=== PATIENT | female | born 1995 | race Caucasian/White ===

== ENCOUNTER 2017-06-06 15:36 | Emergency (ER) | payer MEDICAID ==
[2017-06-06 16:04] LABS: Bilirubin NEGATIVE (NEGATIVE); Blood 50 Ery/ul (0-5); COMPLETE URINE MICROSCOPIC? YES; Collection Type VOID; Glucose NEGATIVE (NEGATIVE); Leukocyte Esterase 1+ (NEGATIVE)
[2017-06-06 16:05] LABS: ADD URINE CULTURE? YES (NO)
[2017-06-06 16:10] LABS: Bacteria PACKED /HPF (NEGATIVE); Epithelial Cells FEW /HPF (FEW)
[2017-06-06] MEDS ORDERED: Sodium Chloride 0.9% 1000 ML 1,000 ML IV STA (16:15)
[2017-06-06] MEDS ORDERED: MORPHINE SULFATE 4 MG INJ IV ONE (16:15)
--- NOTE | 2017-06-06 16:19 | ERPHSYRPT ---
- History of Present Illness Time Seen by Provider: 06/06/17 16:11 Historian: patient Exam Limitations: no limitations Patient Subjective Stated Complaint: pt co abd pain today,no nausea or vomiting , back pain forr and on, pt is and has not had prental care yet. no vaginal bleeding Triage Nursing Assessment: pt walked in, alert,resp easy. skin w/d pink, abd soft, tender to touch,no edema Physician History: 21-year-old white female states that she is she thinks maybe 4-6 weeks. She arrives with complaint of chronic back pain low lumbar region. She also states that she is having suprapubic abdominal pain for several hours. Patient has not been vomiting. Patient states she had a home test multiple times she has not presented to her family doctor. Past medical history includes Gilbert's syndrome, mall removed from her chest. Past surgical history includes . Timing/Duration: other (chronic low back pain suprapubic pain for one hour) Activities at Onset: none Quality: cramping Abdominal Pain Onset Location: suprapubic Pain Radiation: back Severity of Pain-Max: moderate Severity of Pain-Current: moderate Modifying Factors: Improves With: nothing Associated Symptoms: back, No chest pain, No diaphoresis, No diarrhea, No fever/ chills, No fatigue, No headache, No heartburn, No loss of appetite, No nausea, No neck pain, No rash, No shortness of breath, No syncope, No vomiting, No weakness Previous symptoms: same symptoms as today (similar symptoms when she was in the past) Allergies/Adverse Reactions: cefaclor [From Ceclor] Allergy (Mild, Verified 06/06/17 15:52) Rash Hx Influenza Vaccination/Date Given: Yes Hx Pneumococcal Vaccination/Date Given: No Immunizations Up to Date: Yes - Review of Systems Constitutional: No Fever, No Chills Eyes: No Symptoms Ears, Nose, & Throat: No Symptoms, No Ear Pain, No Ear Discharge, No Hearing Changes, No Tinnitus, No Nose Pain, No Nose Congestion, No Nose Discharge, No Sinus Drainage, No Epistaxis, No Mouth Pain, No Mouth Swelling, No Loose Teeth, No Throat Pain, No Throat Swelling, No Hoarse, No Painful Swallowing, No Snoring , No Stridor Respiratory: No Cough, No Dyspnea Cardiac: No Chest Pain, No Edema, No Syncope Abdominal/Gastrointestinal: Abdominal Pain, No Nausea, No Vomiting, No Diarrhea , No Constipation, No Hematemesis, No Hematochezia, No Melena, No Dysphagia, No Appetite Changes Genitourinary Symptoms: No Dysuria Musculoskeletal: Other (chronic low back pain), No Back Pain, No Neck Pain Skin: No Rash Neurological: No Dizziness, No Focal Weakness, No Sensory Changes Psychological: No Symptoms Endocrine: No Symptoms All Other Systems: Reviewed and Negative - Past Medical History Pertinent Past Medical History: Yes Other Medical History: Baltic Syndrome - Past Surgical History Past Surgical History: Yes Neuro Surgical History: No Pertinent History Cardiac: No Pertinent History Respiratory: No Pertinent History Gastrointestinal: No Pertinent History Genitourinary: No Pertinent History Female Surgical History: Section Other Surgical History: Mole removed from chest 2007. 07/27/2013 - Social History Smoking Status: Never smoker Exposure to second hand smoke: No Drug Use: none Patient Lives Alone: No - Female History Hx Last Menstrual Period: mar 15 Hx Now: Yes - Nursing Vital Signs Nursing Vital Signs: Initial Vital Signs Temperature 98.0 F 06/06/17 15:47 Pulse Rate 67 06/06/17 15:47 Respiratory Rate 18 06/06/17 15:47 Blood Pressure 124/87 06/06/17 15:47 O2 Sat by Pulse Oximetry 97 06/06/17 15:47 Pain Scale Pain Intensity 2 - Physical Exam General Appearance: mild distress Eye Exam: PERRL/EOMI, eyes nml inspection Ears, Nose, Throat Exam: normal ENT inspection, pharynx normal, moist mucous membranes Neck Exam: normal inspection, non-tender, supple, full range of motion Respiratory Exam: normal breath sounds, lungs clear, No respiratory distress Cardiovascular Exam: regular rate/rhythm, normal heart sounds Gastrointestinal/Abdomen Exam: soft, normal bowel sounds, tenderness ( suprapubic tenderness) Pelvic Exam: normal external exam, vaginal discharge (scant amount of white discharge), No adnexal tenderness, No adnexal mass, No cervical motion tenderness Back Exam: normal inspection Extremity Exam: normal inspection, normal range of motion, pelvis stable Neurologic Exam: alert, oriented x 3, cooperative, normal mood/affect, nml cerebellar function, sensation nml, No motor deficits Skin Exam: normal color, warm, dry SpO2 Interpretation: normal (97%) SpO2: 97 Oxygen Delivery: Room Air - Course Nursing assessment & vital signs reviewed: Yes - Radiology Ultrasound Exam OB Ultrasound: Other (ob ultrasound: Intrauterine 12 weeks 0 days, heart rate 157 estimated date of confinement December 19, 2017, placenta marginal previa) Ordered Tests: Active Orders 24 hr Category Date Time Status IV Insertion STAT Care 06/06/17 16:15 Active Pelvic Exam Assist STAT Care 06/06/17 16:20 Active OB <14 WKS 1ST GESTATION [US] Stat Exams 06/06/17 16:21 Ordered AMYLASE Stat Lab 06/06/17 16:27 Completed CBC W DIFF Stat Lab 06/06/17 16:27 Completed CMP Stat Lab 06/06/17 16:27 Completed CULTURE,URINE Stat Lab 06/06/17 15:56 Received HCG, Quantitative (Inhouse) Stat Lab 06/06/17 16:27 Completed HCG,QUALITATIVE URINE Stat Lab 06/06/17 15:57 Completed LIPASE Stat Lab 06/06/17 16:27 Completed UA W/ MICROSCOPIC Stat Lab 06/06/17 15:56 Completed Wet Prep Stat Lab 06/06/17 17:20 Completed Medication Summary Discontinued Medications Generic Name Dose Route Start Last Admin Trade Name Freq PRN Reason Stop Dose Admin Sodium Chloride 1,000 mls @ 999 mls/hr 06/06/17 16:15 06/06/17 16:42 Sodium Chloride 0.9% 1000 Ml IV 06/06/17 17:15 999 mls/hr .Q1H1M STA Administration Sodium Chloride Confirm 06/06/17 16:30 Sodium Chloride 0.9% 1000 Ml Administered 06/06/17 16:31 Dose 1,000 mls @ ud .ROUTE .STK-MED ONE Morphine Sulfate 4 mg 06/06/17 16:15 06/06/17 16:42 Morphine Sulfate 4 Mg Inj IV 06/06/17 16:16 4 mg STAT ONE Administration Morphine Sulfate Confirm 06/06/17 16:29 Morphine Sulfate 4 Mg Inj Administered 06/06/17 16:30 Dose 4 mg .ROUTE .STK-MED ONE Lab/Rad Data: Laboratory Result Diagrams 06/06/17 16:27 06/06/17 16:27 Laboratory Results 06/06/17 06/06/17 06/06/17 Range/Units 17:20 16:27 16:27 WBC 8.7 (4.0-10.5) K/mm3 RBC 3.88 L (4.1-5.4) M/mm3 Hgb 11.3 L (12.0-16.0) gm/dl Hct 33.8 L (35-47) % MCV 87.1 (78-100) fl MCH 29.1 (26-32) pg MCHC 33.4 (32-36) g/dl RDW 12.7 (11.5-14.0) % Plt Count 164 (150-450) K/mm3 MPV 11.6 H (6-9.5) fl Gran % 85.4 H (36.0-66.0) % Lymphocytes % 7.8 L (24.0-44.0) % Monocytes % 6.5 (0.0-12.0) % Eosinophils % 0.2 (0.00-5.0) % Basophils % 0.1 (0.0-0.4) % Basophils # 0.01 (0-0.4) Sodium 137 (136-145) mEq/L Potassium 3.8 (3.5-5.1) mEq/L Chloride 103 (98-107) mEq/L Carbon Dioxide 22.7 (21-32) mEq/L Anion Gap 14.9 (5-15) MEQ/L BUN 6 L (9-20) mg/dL Creatinine 0.67 (0.55-1.30) mg/dl Estimated GFR > 60 ML/MIN Glucose 93 (70-110) MG/DL Calcium 8.7 (8.5-10.1) mg/dL Total Bilirubin 0.80 (0.2-1.0) mg/dL AST 9 L (15-37) U/L ALT 13 (12-78) U/L Alkaline Phosphatase 64 (46-116) U/L Serum Total Protein 7.0 (6.4-8.2) gm/dL Albumin 3.3 L (3.4-5.0) g/dL Amylase 40 (25-115) U/L Lipase 132 (73-393) U/L Beta HCG, Quant 30602 H (0-6) IU/L Ur Collection Type Urine Color (YELLOW) Urine Appearance (CLEAR) Urine pH (5-6) Ur Specific [place] (1.005-1.025) Urine Protein (Negative) Urine Ketones (NEGATIVE) Urine Blood (0-5) Kristopher/ul Urine Nitrite (NEGATIVE) Urine Bilirubin (NEGATIVE) Urine Urobilinogen (0-1) mg/dL Ur Leukocyte Esterase (NEGATIVE) Urine Microscopic RBC (0-2) /HPF Urine Microscopic WBC (0-5) /HPF Ur Epithelial Cells (FEW) /HPF Urine Bacteria (NEGATIVE) /HPF Urine Culture Reflexed (NO) Urine Glucose (NEGATIVE) mg/dL Urine HCG, Qual (Negative) WBC (Wet Prep) Rare RBC (Wet Prep) Rare Epi Cells (Wet Prep) Few Bacteria (Wet Prep) Rare Clue Cells (Wet Prep) None Seen Trichomonas (Wet Prep) None Seen Budding Yeast (Wet Prp) None Seen Specimen Received 06/06/17 06/06/17 Range/Units 15:57 15:56 WBC (4.0-10.5) K/mm3 RBC (4.1-5.4) M/mm3 Hgb (12.0-16.0) gm/dl Hct (35-47) % MCV (78-100) fl MCH (26-32) pg MCHC (32-36) g/dl RDW (11.5-14.0) % Plt Count (150-450) K/mm3 MPV (6-9.5) fl Gran % (36.0-66.0) % Lymphocytes % (24.0-44.0) % Monocytes % (0.0-12.0) % Eosinophils % (0.00-5.0) % Basophils % (0.0-0.4) % Basophils # (0-0.4) Sodium (136-145) mEq/L Potassium (3.5-5.1) mEq/L Chloride (98-107) mEq/L Carbon Dioxide (21-32) mEq/L Anion Gap (5-15) MEQ/L BUN (9-20) mg/dL Creatinine (0.55-1.30) mg/dl Estimated GFR ML/MIN Glucose (70-110) MG/DL Calcium (8.5-10.1) mg/dL Total Bilirubin (0.2-1.0) mg/dL AST (15-37) U/L ALT (12-78) U/L Alkaline Phosphatase (46-116) U/L Serum Total Protein (6.4-8.2) gm/dL Albumin (3.4-5.0) g/dL Amylase (25-115) U/L Lipase (73-393) U/L Beta HCG, Quant (0-6) IU/L Ur Collection Type VOID Urine Color YELLOW (YELLOW) Urine Appearance CLOUDY (CLEAR) Urine pH 7.0 (5-6) Ur Specific [place] 1.010 (1.005-1.025) Urine Protein NEGATIVE (Negative) Urine Ketones NEGATIVE (NEGATIVE) Urine Blood 50 (0-5) Kristopher/ul Urine Nitrite POSITIVE (NEGATIVE) Urine Bilirubin NEGATIVE (NEGATIVE) Urine Urobilinogen NORMAL (0-1) mg/dL Ur Leukocyte Esterase 1+ (NEGATIVE) Urine Microscopic RBC 0-2 (0-2) /HPF Urine Microscopic WBC 10-15 (0-5) /HPF Ur Epithelial Cells FEW (FEW) /HPF Urine Bacteria PACKED (NEGATIVE) /HPF Urine Culture Reflexed YES (NO) Urine Glucose NEGATIVE (NEGATIVE) mg/dL Urine HCG, Qual POSITIVE (Negative) WBC (Wet Prep) RBC (Wet Prep) Epi Cells (Wet Prep) Bacteria (Wet Prep) Clue Cells (Wet Prep) Trichomonas (Wet Prep) Budding Yeast (Wet Prp) Specimen Received 06/06/17 1600 - Progress Progress: improved Progress Note: 06/06/17 17:51 21-year-old white female who is complaining of suprapubic pain she has had chronic back pain but suprapubic pain since today. No vaginal bleeding. Patient states she has had positive tests at home. Patient with mild suprapubic tenderness. Patient is positive for a urinary tract infection. Patient with normal white count. Pelvic ultrasound shows intrauterine 12 weeks 0 day heart rate 157 estimated date of confinement December 19, 2017. Patient does have placenta marginal previa. Patient improved after morphine 4 mg IV and 1 L of normal saline. Awaiting wet prep, GC chlamydia. 06/06/17 18:31 Patient is still awaiting GC Chlamydia. She wants to go home. Will release will have to follow-up on GC Chlamydia if positive. - Departure Time of Disposition: 18:22 Departure Disposition: Home Clinical Impression: Suprapubic abdominal pain, Marginal placenta previa Qualifiers: Weeks of gestation: 12 weeks Qualified Code(s): Z3A.12 - 12 weeks gestation of UTI (urinary tract infection) Qualifiers: Urinary tract infection type: site unspecified Hematuria presence: without hematuria Qualified Code(s): N39.0 - Urinary tract infection, site not specified Condition: Fair Critical Care Time: No Referrals: BUCKY COOPER [Primary Care Provider] - Additional Instructions: Return home. Plenty of fluids clear fluids only 24-48 hours if abdominal pain. Macrobid 100 mg orally twice a day for 10 days. Tylenol every 4 hours as needed for pain. Follow-up with your family doctor or [facility] physician. Return for acute distress or for severe symptoms. Prescriptions: Nitrofurantoin Macro 100 mg [Macrobid 100MG Capsule] 100 mg PO BID #20 capsule
[2017-06-06 16:28] LABS: BASOPHIL % 0.1 % (0.0-0.4); Eosinophil % 0.2 % (0.00-5.0); Granulocytes % 85.4 % (36.0-66.0); Lymphocytes % 7.8 % (24.0-44.0); Mean Cell Volume 87.1 fl (78-100); Mean Corpuscular Hemoglobin 29.1 pg (26-32); Mean Platelet Volume 11.6 fl (6-9.5); Monocytes % 6.5 % (0.0-12.0); Platelet Count 164 K/mm3 (150-450); Red Blood Count 3.88 M/mm3 (4.1-5.4); Red Cell Distribution Width 12.7 % (11.5-14.0); White Blood Count 8.7 K/mm3 (4.0-10.5)
[2017-06-06] MEDS ORDERED: MORPHINE SULFATE 4 MG INJ ONE (16:29)
[2017-06-06] MEDS ORDERED: Sodium Chloride 0.9% 1000 ML 1,000 ML ONE (16:30)
[2017-06-06 17:10] LABS: ALBUMIN 3.3 g/dL (3.4-5.0); ALKALINE PHOSPHATASE 64 U/L (46-116); ANION GAP 14.9 MEQ/L (5-15); BLOOD UREA NITROGEN 6 mg/dL (9-20); CHLORIDE 103 mEq/L (98-107); Carbon Dioxide 22.7 mEq/L (21-32); Glucose 93 MG/DL (70-110); HCG, Quantitative (Inhouse) 47866 IU/L (0-6); LIPASE 132 U/L (73-393); Potassium 3.8 mEq/L (3.5-5.1); SGOT/AST 9 U/L (15-37); SGPT/ALT 13 U/L (12-78); SODIUM 137 mEq/L (136-145)
[2017-06-06 17:12] VITALS: BP 147/67; PULSE 69
[2017-06-06 17:50] VITALS: O2SAT 97
[2017-06-06 18:12] LABS: Bacteria Rare; Clue Cells None Seen; Trichomonas None Seen; Yeast None Seen
[2017-06-06 19:33] LABS: CHLAMYDIA DNA NEGATIVE
--- NOTE | 2017-06-06 20:23 | XRAY ---
Indication: Abdominal/back pain. Two-dimensional transabdominal early OB ultrasound performed. Comparison: None for this . There is a single intrauterine gestational sac with a single pole. The mean crown-rump length measures 5.41 cm corresponding to 12 weeks 0 days. heart rate 157 BPM. No abnormal subchorionic fluid. Posterior placenta is low-lying. Left and right ovaries unremarkable. No suspicious adnexal mass or free fluid. Impression: Single viable intrauterine measuring 12 weeks 0 days. Expected date confinement is December 19, 2017. Low-lying placenta, not unusual for gestational age. Comment: Preliminary report was given.
== END 2017-06-06 18:51 | disposition home or self-care (01) ==
LOC: ED 15:36
DX: O23.41 Unspecified infection of urinary tract in pregnancy, first trimester (principal); O44.21 Partial placenta previa NOS or without hemorrhage, first trimester; Z3A.12 12 weeks gestation of pregnancy
CPT/HCPCS: 36000; 36415; 76801; 80053; 81000; 82150; 83690; 84702; 84703; 85025; 87077; 87086; 87186; 87210; 87490; 87590; 96360; 96374; 99284; J2270

== ENCOUNTER 2017-09-29 07:25 | Observation (INO) | payer MEDICAID ==
[2017-09-29 09:27] LABS: Appearance HAZY (CLEAR); Bilirubin NEGATIVE (NEGATIVE); Blood NEGATIVE Ery/ul (0-5); Glucose NEGATIVE (NEGATIVE); Ketones NEGATIVE (NEGATIVE); Leukocyte Esterase NEGATIVE (NEGATIVE); Nitrite NEGATIVE (NEGATIVE); Protein,Urine Dip NEGATIVE (Negative); Urobilinogen NORMAL mg/dL (0-1)
[2017-09-29 10:06] VITALS: BP 102/57; PULSE 67
== END 2017-09-29 10:05 | disposition home or self-care (01) ==
LOC: OB 07:25
PROVIDERS: ADMIT Family Medicine; ATTEND Family Medicine
DX: Z34.83 Encounter for supervision of other normal pregnancy, third trimester (principal)
CPT/HCPCS: 81002; G0378

== ENCOUNTER 2017-11-23 17:26 | Observation (INO) | payer MEDICAID ==
[2017-11-23] MEDS ORDERED: ZOFRAN ODT 4 MG PO PRN (18:13)
[2017-11-23] MEDS ORDERED: TYLENOL 325 MG PO PRN (18:13)
[2017-11-23 18:59] LABS: BASOPHIL % 0.1 % (0.0-0.4); Basophil (Absolute #) 0.01 (0-0.4); Eosinophil % 0.5 % (0.00-5.0); Eosinophil (Absolute #) 0.04 (0-0.5); Granulocyte Absolute (ANC) 6.03 (1.4-6.9); Granulocytes % 76.8 % (36.0-66.0); Hematocrit 34.1 % (35-47); Hemoglobin 11.4 gm/dl (12.0-16.0); Lymphocyte (Absolute #) 1.24 (1.0-4.6); Lymphocytes % 15.8 % (24.0-44.0); Mean Cell Volume 91.9 fl (78-100); Mean Corpuscular Hemoglobin 30.7 pg (26-32); Mean Corpuscular Hgb Concent. 33.4 g/dl (32-36); Mean Platelet Volume 11.2 fl (6-9.5); Monocyte (Absolute #) 0.53 (0.0-1.3); Monocytes % 6.8 % (0.0-12.0); Platelet Count 181 K/mm3 (150-450); Red Blood Count 3.71 M/mm3 (4.1-5.4); Red Cell Distribution Width 13.2 % (11.5-14.0); White Blood Count 7.9 K/mm3 (4.0-10.5)
[2017-11-23 19:13] LABS: Appearance CLEAR (CLEAR); Bilirubin NEGATIVE (NEGATIVE); Blood NEGATIVE Ery/ul (0-5); Glucose NEGATIVE (NEGATIVE); Ketones NEGATIVE (NEGATIVE); Leukocyte Esterase NEGATIVE (NEGATIVE); Nitrite NEGATIVE (NEGATIVE); Protein,Urine Dip NEGATIVE (Negative); Specific Gravity 1.015 (1.005-1.025); Urobilinogen NORMAL mg/dL (0-1)
[2017-11-23 19:18] LABS: ALBUMIN 3.5 g/dL (3.5-5.0); ALKALINE PHOSPHATASE 76 U/L (38-126); ANION GAP 12.4 MEQ/L (5-15); BLOOD UREA NITROGEN 8 mg/dL (7-17); CHLORIDE 107 mmol/L (98-107); Calcium 8.9 mg/dL (8.4-10.2); Carbon Dioxide 23 mmol/L (22-30); Creatinine 1 0.59 mg/dL (0.52-1.04); Glucose 104 mg/dL (74-106); Potassium 3.7 mmol/L (3.5-5.1); SGOT/AST 13 U/L (14-36); SGPT/ALT 10 U/L (0-35); SODIUM 139 mmol/L (137-145); Total Protein 6.7 g/dL (6.3-8.2); Uric Acid 4.4 mg/dL (2.6-6.0)
[2017-11-24 03:59] VITALS: PULSE 68
[2017-11-24 07:50] VITALS: BP 125/57
== END 2017-11-24 07:35 | disposition home or self-care (01) ==
LOC: OB 17:26 → UNDOADMOB 17:26
PROVIDERS: ADMIT Family Medicine; ATTEND Family Medicine
DX: Z34.82 Encounter for supervision of other normal pregnancy, second trimester (principal)
CPT/HCPCS: 36415; 80053; 81002; 84550; 85025; G0378

== ENCOUNTER 2017-12-08 04:49 | Inpatient (IN) | payer MEDICAID ==
[~2017-12-08 04:49] MED LIST: CLINDAMYCIN-D5W 900 MG/50 ML*** 900 MG/50 ML BAG IV SCH
[2017-12-08] MEDS ORDERED: Decadron 4 MG INJ IV ONE (04:50)
[2017-12-08] MEDS ORDERED: SUBLIMAZE 100 MCG/2 ML IV ONE (04:50)
[2017-12-08] MEDS ORDERED: DIPRIVAN 200 MG/20 ML IV ONE (04:50)
[2017-12-08] MEDS ORDERED: Versed 2 MG/2 ML Injection IV ONE (04:50)
[2017-12-08] MEDS ORDERED: Zofran 4 MG/2 ML VIAL IV ONE (04:50)
[2017-12-08] MEDS ORDERED: Astramorph-Pf 5 MG/10 ML IV ONE (04:50)
[2017-12-08] MEDS ORDERED: Pitocin 10 UNITS/ML IV ONE (04:50)
[2017-12-08] MEDS ORDERED: Naropin 0.5% 30 ML VIAL IJ ONE (04:50)
[2017-12-08] MEDS ORDERED: Pepcid 20 MG VIAL IV SCH (05:00)
[2017-12-08] MEDS ORDERED: BICITRA 30 ML CUP PO SCH (05:00)
[2017-12-08] MEDS ORDERED: Reglan 10 MG/2 ML IV SCH (05:00)
[2017-12-08 05:28] LABS: BASOPHIL % 0.3 % (0.0-0.4); Basophil (Absolute #) 0.02 (0-0.4); Eosinophil % 0.5 % (0.00-5.0); Eosinophil (Absolute #) 0.04 (0-0.5); Granulocyte Absolute (ANC) 5.66 (1.4-6.9); Granulocytes % 71.6 % (36.0-66.0); Hematocrit 35.9 % (35-47); Hemoglobin 12.2 gm/dl (12.0-16.0); Lymphocyte (Absolute #) 1.62 (1.0-4.6); Lymphocytes % 20.5 % (24.0-44.0); Mean Cell Volume 90.2 fl (78-100); Mean Platelet Volume 11.3 fl (6-9.5); Monocyte (Absolute #) 0.56 (0.0-1.3); Monocytes % 7.1 % (0.0-12.0); Platelet Count 199 K/mm3 (150-450); Red Blood Count 3.98 M/mm3 (4.1-5.4); White Blood Count 7.9 K/mm3 (4.0-10.5)
[2017-12-08 05:32] LABS: Mean Corpuscular Hemoglobin 30.6 pg (26-32)
[2017-12-08 05:40] LABS: INR 0.98 (0.8-3.0)
[2017-12-08 05:43] LABS: PTT 26.2 SECONDS (25.3-37.0)
[2017-12-08] MEDS ORDERED: Lactated Ringers 1,000 ML IV ONE ×2 (06:00→08:16)
[2017-12-08] MEDS ORDERED: Lactated Ringers 1,000 ML IV SCH (06:00)
[2017-12-08 06:09] LABS: ABO TYPING AB; Antibody Screen NEGATIVE (NEGATIVE); RH TYPING POSITIVE
[2017-12-08 07:28] LABS: Appearance CLEAR (CLEAR); Bilirubin NEGATIVE (NEGATIVE); Blood NEGATIVE Ery/ul (0-5); Glucose NEGATIVE (NEGATIVE); Ketones NEGATIVE (NEGATIVE); Leukocyte Esterase NEGATIVE (NEGATIVE); Nitrite NEGATIVE (NEGATIVE); Protein,Urine Dip NEGATIVE (Negative); Urobilinogen NORMAL mg/dL (0-1)
[2017-12-08] MEDS ORDERED: MORPHINE SULFATE 2 MG INJ IV PRN (09:00)
[2017-12-08] MEDS ORDERED: Nubain 10 MG/ML IV PRN (09:00)
[2017-12-08] MEDS ORDERED: Zofran 4 MG/2 ML VIAL IV PRN (09:00)
[2017-12-08] MEDS ORDERED: PERCOCET TABLET 5/325MG PO PRN (09:00)
[2017-12-08] MEDS ORDERED: BENADRYL 50 MG/ML IV PRN (09:00)
[2017-12-08] MEDS ORDERED: CLARITIN 10 MG PO PRN (09:00)
[2017-12-08] MEDS ORDERED: Adacel Vial IM ONE (09:00)
[2017-12-08] MEDS ORDERED: Phenergan 25 MG INJ IM PRN (09:00)
[2017-12-08] MEDS ORDERED: CORTISONE 1% CREAM TP PRN (09:00)
[2017-12-08] MEDS ORDERED: Narcan 0.4 MG/ML IV PRN (09:00)
[2017-12-08] MEDS ORDERED: LANSINOH 40 GM TOP PRN (09:00)
[2017-12-08] MEDS ORDERED: Dermoplast Spray TP PRN (09:00)
[2017-12-08] MEDS ORDERED: DEMEROL 50 MG IV PRN (09:00)
[2017-12-08] MEDS ORDERED: Ambien 10 MG PO PRN (09:00)
[2017-12-08] MEDS ORDERED: Dulcolax 10 MG SUPP PR PRN (09:00)
[2017-12-08] MEDS ORDERED: HOLD NARCOTIC ANALGESICS AND SEDATIVES X24 HR MC PRN (09:00)
[2017-12-08] MEDS ORDERED: Anucort-HC SUPPOSITORY PR PRN (09:00)
[2017-12-08 09:07] LABS: Amphetamine,Urine NEGATIVE (NEGATIVE); Barbiturate,Urine NEGATIVE (NEGATIVE); Benzodiazepine,Urine NEGATIVE (NEGATIVE); Cocaine,Urine NEGATIVE (NEGATIVE); Methadone,Urine NEGATIVE (NEGATIVE); Opiate,Urine NEGATIVE (NEGATIVE); PCP,Urine NEGATIVE (NEGATIVE); THC,Urine NEGATIVE (NEGATIVE)
[2017-12-08] MEDS ORDERED: FERREX 150 PO SCH (10:00)
--- NOTE | 2017-12-08 10:18 | OP ---
SURGERY DATE/TIME: 12/08/2017729 PREOPERATIVE DIAGNOSES: 1) History of prior section. 2) Term intrauterine . 3) Gestational hypertension. POSTOPERATIVE DIAGNOSES: 1) History of prior section. 2) Term intrauterine . 3) Gestational hypertension. PROCEDURE: Repeat low transverse section. SURGEON: Bird Escalante M.D. ESTIMATED BLOOD LOSS: 300 cc. IV FLUIDS: 1500 cc of crystalloid. URINE OUTPUT: 200 cc of clear straw-colored urine. ANESTHESIA: Spinal by Candido Wiggins CRNA. SPECIMENS: None. DESCRIPTION OF PROCEDURE: After informed written consent was obtained, the patient was taken to the operating room. She underwent spinal anesthesia and was prepped and draped in usual sterile fashion. After adequate level of anesthesia assessed, a low transverse skin incision was made by knife and carried down through the subcutaneous fat to the level of the fascia. The fascia was nicked on both sides of the midline and then extended in horizontal fashion using curved Gray scissors. The superior free edge of the fascia was then grasped with Gerber clamps and the underlying rectus muscles were dissected free. The same was repeated inferiorly. The peritoneal cavity was then opened in horizontal blunt fashion and a bladder flap was created and reflected over the lower uterine segment. A horizontal uterine incision was made by knife and carried down to the level of the amniotic membranes which were carefully artificially ruptured. A viable female was delivered from the vertex presentation with a strong cry immediately upon delivery. Oropharynx and nares were bulb suctioned free. The cord was clamped and cut and she was handed off to the awaiting nursery team. The placenta was removed from the uterine cavity and the uterus was exteriorized. The uterine cavity was wiped free sponge curetted clean with lap sponge. The uterine incision was closed with #1 chromic in a running locked fashion with good closure and good hemostasis. The posterior cul-de-sac was wiped free of blood and clot with a moist lap sponge and the uterus was returned to the peritoneal cavity. Lateral gutters were wiped free of blood and clot. Again the uterine incision was inspected and noted to be hemostatic with good closure. Next, the fascia was closed with 0 Vicryl in a running fashion with good closure and good hemostasis were achieved. Subcutaneous fat was irrigated with warm, sterile saline and any areas of bleeding were cauterized with electrocautery. Finally the skin layer was closed with 4-0 undyed Vicryl in a running subcuticular fashion. Steri-Strips and occlusive dressing were placed over the incision. The patient was transferred to the recovery room in excellent condition.
[2017-12-08] MEDS: Dextrose 5%-Lr IV Solution 1000 ML 1,000 ML IV SCH ×2 (13:28→20:01)
[2017-12-08] MEDS: Mylicon 80MG PO PRN (20:01)
[2017-12-08] MEDS: MOTRIN 400 MG PO PRN (20:02)
[2017-12-09] MEDS: Colace 100 MG PO SCH ×3 (00:15→21:29)
[2017-12-09] MEDS: TYLENOL EXTRA STRENGTH 500 MG PO PRN ×4 (00:16→21:29)
[2017-12-09] MEDS: MOTRIN 400 MG PO PRN ×3 (03:09→17:41)
[2017-12-09 06:00] LABS: Hematocrit 30.8 % (35-47); Hemoglobin 10.2 gm/dl (12.0-16.0); Mean Cell Volume 92.5 fl (78-100); Mean Corpuscular Hemoglobin 30.6 pg (26-32); Mean Corpuscular Hgb Concent. 33.1 g/dl (32-36); Mean Platelet Volume 11.5 fl (6-9.5); Platelet Count 185 K/mm3 (150-450); Red Blood Count 3.33 M/mm3 (4.1-5.4); Red Cell Distribution Width 13.2 % (11.5-14.0); White Blood Count 10.7 K/mm3 (4.0-10.5)
[2017-12-09 08:40] VITALS: O2SAT 100
[2017-12-09] MEDS: Mylicon 80MG PO PRN ×2 (08:43→18:21)
[2017-12-09] MEDS ORDERED: NORCO 5/325 MG PO PRN (09:00)
[2017-12-10] MEDS: MOTRIN 400 MG PO PRN ×2 (00:31→07:25)
[2017-12-10] MEDS: TYLENOL EXTRA STRENGTH 500 MG PO PRN (04:19)
[2017-12-10 05:31] VITALS: PULSE 62
--- NOTE | 2017-12-10 08:34 | PCM.DS ---
Discharge Summary Date of Admission: 12/08/17 07:30 Admitting Physician: JOAO HEBERT Consults: Consults on Case 12/08/17 01:57 Notify Anesthesia Provider ROUTINE 12/08/17 05:00 Notify Physician OF ADMISSION Primary Care Provider: JOAO HEBERT Allergies Allergies cefaclor [From Ceclor] Allergy (Mild, Verified 12/08/17 05:59) Rash Hospital Summary - Hospital Course Hospital Course: had repeat c/s on 12/08 with no complications. has done well , and pain is controlled with tylenol and motrin - Vitals & Intake/Output Vital Signs: Vital Signs Temperature 97.9 F 12/10/17 04:20 Pulse Rate 62 12/10/17 04:20 Respiratory Rate 18 12/10/17 04:20 Blood Pressure 117/74 12/10/17 04:20 O2 Sat by Pulse Oximetry 100 12/09/17 08:00 Intake & Output: Intake & Output 12/07/17 12/08/17 12/09/17 12/10/17 11:59 11:59 11:59 11:59 Intake Total 4233 1150 Output Total 0 5425 Balance 0 -1192 1150 Weight 104.78 kg - Lab Result Diagrams: 12/09/17 05:00 Micro Results-Entire Visit: Microbiology 12/08/17 09:36 Urine Culture - Preliminary Catherized NO GROWTH TO DATE Discharge Exam General Appearance: no apparent distress, alert Skin Exam: normal color, warm, dry Eye Exam: PERRL, EOMI, eyes nml inspection Respiratory Exam: normal breath sounds, lungs clear, No respiratory distress Cardiovascular Exam: regular rate/rhythm, normal heart sounds Gastrointestinal/Abdomen Exam: soft, other (incision c/d/i), No tenderness, No mass Extremity Exam: normal inspection, normal range of motion Final Diagnosis/Problem List - Final Discharge Diagnosis/Problem (1) delivery delivered Current Visit: No Status: Acute Assessment & Plan: doing well, home today - Discharge Disposition: Home, Self-Care Condition: Stable Prescriptions: Continue Vits W-Ca,Fe,FA(<1Mg) [] 1 each PO DAILY Ferrous Sulfate 325 mg PO DAILY Discontinued Docusate Sodium [Colace] 1 tab PO BID Instructions: ( Delivery) (DC) Additional Instructions: FOLLOW UP TO OB UNIT 2 DAYS AFTER DISCHARGE ON TUESDAY 12/12 FOR CHECK UP OF YOU AND BABY Follow up with: JOAO HEBERT MD [Primary Care Provider] - 1 Week (MAKE A FOLLOW UP APPOINTMENT FOR YOU TO DR HEBERT OFFICE ONE WEEK AFTER DISCHARGE FOR POST C- SECTION.) Forms: OB Discharge Instructions
[2017-12-10 10:30] VITALS: BP 135/79
== END 2017-12-10 09:20 | disposition home or self-care (01) | DRG 765 ==
LOC: OB 04:49 → OBSVTOIN 07:30 → OB 07:30
PROVIDERS: ADMIT Family Medicine; ATTEND Family Medicine
PROC: 10D00Z1 Extraction of Products of Conception, Low, Open Approach (ICD-10-PCS; principal; 2017-12-08)
DX: O34.211 Maternal care for low transverse scar from previous cesarean delivery (principal); O13.3 Gestational [pregnancy-induced] hypertension without significant proteinuria, third trimester; Z3A.38 38 weeks gestation of pregnancy; Z37.0 Single live birth
CPT/HCPCS: 36415; 64488; 76937; 76942; 80307; 81002; 85025; 85027; 85610; 85730; 86850; 86900; 86901; 87086; 90715; 94799; J1100; J2250; J2274; J2405; J2590; J2704; J2795; J3010; L0625; A9270-GY

== ENCOUNTER 2020-07-19 02:06 | Emergency (ER) | payer OTHER ==
[2020-07-19 02:19] VITALS: O2SAT 100
[2020-07-19] MEDS ORDERED: BABY ASPIRIN 81 MG CHEW PO ONE (02:47)
--- NOTE | 2020-07-19 02:55 | ERPHSYRPT ---
- History of Present Illness Time Seen by Provider: 07/19/20 02:30 Historian: patient Exam Limitations: no limitations Patient Subjective Stated Complaint: pt states she woke up with chest pressure Triage Nursing Assessment: pt alert and oriented, answers questions approp. pt ambulatory with steady gait noted. respirations nonlabored with lungs cta. skin pink warm and dry. heart rate 90, sius rhythm on monitor. Physician History: This is a 24-year-old white female who states that she had sudden onset of chest pressure and tightness that is substernal and central without radiation that occurred approximately 15 minutes prior to arrival into the emergency department. Patient states that she has not had any new stressors. She denies shortness of breath. She has no nausea vomiting or diarrhea. She did states t hat she does have history of anxiety and panic attacks. She has had no chest wall trauma. She has never had anything like this in the past. She denies cough. Quality: pressure, tightness Location: substernal, central Chest Pain Radiation: no radiation Severity of Pain-Max: mild Severity of Pain-Current: none Modifying Factors: Improves With: nothing Associated Symptoms: denies symptoms Prior Chest Pain/Cardiac Workup: no prior chest pain Nitro Today/Relief: no nitro taken today Aspirin Treatment Today: no aspirin today Allergies/Adverse Reactions: cefaclor [From Ceclor] Allergy (Mild, Verified 07/19/20 02:45) Rash Home Medications: No Reportable Medications [No Reported Medications] 07/11/20 [History] Hx Tetanus, Diphtheria Vaccination/Date Given: Yes Hx Influenza Vaccination/Date Given: Yes Hx Pneumococcal Vaccination/Date Given: No Immunizations Up to Date: Yes Travel Risk - International Travel Have you traveled outside of the country in past 3 weeks: No - Coronavirus Screening Are you exhibiting any of the following symptoms?: No Close contact with a COVID-19 positive Pt in past 14-21 Days: No - Review of Systems Constitutional: No Symptoms Eyes: No Symptoms Ears, Nose, & Throat: No Symptoms Respiratory: No Symptoms Cardiac: No Symptoms Abdominal/Gastrointestinal: No Symptoms Genitourinary Symptoms: No Symptoms Musculoskeletal: No Symptoms Skin: No Symptoms Neurological: No Symptoms Psychological: No Symptoms Endocrine: No Symptoms Hematologic/Lymphatic: No Symptoms Immunological/Allergic: No Symptoms All Other Systems: Reviewed and Negative - Past Medical History Pertinent Past Medical History: Yes Neurological History: No Pertinent History ENT History: No Pertinent History Cardiac History: No Pertinent History Respiratory History: No Pertinent History Endocrine Medical History: No Pertinent History Musculoskeletal History: Fractures GI Medical History: No Pertinent History History: No Pertinent History Psycho-Social History: No Pertinent History Female Reproductive Disorders: No Pertinent History Other Medical History: [place] Syndrome, Ovarian Cysts, Broken colar bone - Past Surgical History Past Surgical History: Yes Neuro Surgical History: No Pertinent History Cardiac: No Pertinent History Respiratory: No Pertinent History Gastrointestinal: No Pertinent History Genitourinary: No Pertinent History Musculoskeletal: No Pertinent History Female Surgical History: Section Other Surgical History: Mole removed from chest 2007. 07/27/2013, 06/26/15, 12/08/17 - Social History Smoking Status: Never smoker Exposure to second hand smoke: No Drug Use: none Patient Lives Alone: No - Female History Hx Last Menstrual Period: last month Hx Now: No - Nursing Vital Signs Nursing Vital Signs: Initial Vital Signs Pulse Rate 90 07/19/20 02:08 Respiratory Rate 18 07/19/20 02:08 Blood Pressure 134/81 07/19/20 02:08 O2 Sat by Pulse Oximetry 100 07/19/20 02:08 Pain Scale Pain Intensity 4 - Physical Exam General Appearance: no apparent distress, alert, anxiety Eye Exam: PERRL/EOMI, eyes nml inspection Ears, Nose, Throat Exam: normal ENT inspection, moist mucous membranes Neck Exam: normal inspection, non-tender, supple, full range of motion Respiratory Exam: normal breath sounds, lungs clear, airway intact, No chest tenderness, No respiratory distress Cardiovascular Exam: regular rate/rhythm, normal heart sounds, normal peripheral pulses Gastrointestinal/Abdomen Exam: soft, normal bowel sounds, No tenderness Pelvic Exam: not done Rectal Exam: not done Back Exam: normal inspection, normal range of motion, No CVA tenderness, No vertebral tenderness Extremity Exam: normal inspection, normal range of motion, pelvis stable Neurologic Exam: alert, oriented x 3, cooperative, circus roustabout II-XII nml as tested, normal mood/affect, nml cerebellar function, nml station & gait, sensation nml Skin Exam: normal color, warm, dry Lymphatic Exam: No adenopathy SpO2 Interpretation: normal SpO2: 100 O2 Delivery: Room Air - Course Nursing assessment & vital signs reviewed: Yes EKG Interpreted by Me: RATE ([id number]), Sinus Rhythm, NORMAL AXIS, NORMAL INTERVALS, NORMAL QRS, NORMAL ST-T, Other (No acute ischemic changes. No comparison EKG available) Ordered Tests: Active Orders 24 hr Category Date Time Status Financial Planning Advisor STAT Care 07/19/20 02:48 Active EKG-ER Only STAT Care 07/19/20 02:47 Active IV Insertion STAT Care 07/19/20 02:47 Active Pulse Oximetry (ED) STAT Care 07/19/20 02:47 Active CBC W DIFF Stat Lab 07/19/20 02:28 Completed CMP Stat Lab 07/19/20 02:28 Completed D-DIMER QUANTITATIVE Stat Lab 07/19/20 02:28 Completed PROTIME WITH INR Stat Lab 07/19/20 02:28 Completed TROPONIN Q3H Lab 07/19/20 02:28 Completed TROPONIN Q3H Lab 07/19/20 06:00 Ordered TROPONIN Q3H Lab 07/19/20 09:00 Ordered TROPONIN Q3H Lab 07/19/20 12:00 Ordered TROPONIN Q3H Lab 07/19/20 15:00 Ordered Medication Summary Discontinued Medications Generic Name Dose Route Start Last Admin Trade Name Freq PRN Reason Stop Dose Admin Aspirin 324 mg 07/19/20 02:47 07/19/20 02:52 Baby Aspirin 81 Mg Chew PO 07/19/20 02:48 324 mg STAT ONE Administration Lab/Rad Data: Laboratory Result Diagrams 07/19/20 02:28 07/19/20 02:28 Laboratory Results 07/19/20 07/19/20 07/19/20 Range/Units 02:28 02:28 02:28 WBC (4.0-10.5) K/mm3 RBC (4.1-5.4) M/mm3 Hgb (12.0-16.0) gm/dl Hct (35-47) % MCV (78-100) fl MCH (26-32) pg MCHC (32-36) g/dl RDW (11.5-14.0) % Plt Count (150-450) K/mm3 MPV (7.5-11.0) fl Gran % (36.0-66.0) % Eos # (Auto) (0-0.5) Absolute Lymphs (auto) (1.0-4.6) Absolute Monos (auto) (0.0-1.3) Lymphocytes % (24.0-44.0) % Monocytes % (0.0-12.0) % Eosinophils % (0.00-5.0) % Basophils % (0.0-0.4) % Absolute Granulocytes (1.4-6.9) Basophils # (0-0.4) PT 13.9 H (9.95-12.35) SECONDS INR 1.23 (0.8-3.0) D-Dimer 377 (215-500) ng/mL Sodium 138 (137-145) mmol/L Potassium 3.7 (3.5-5.1) mmol/L Chloride 104 (98-107) mmol/L Carbon Dioxide 24 (22-30) mmol/L Anion Gap 13.7 (5-15) MEQ/L BUN 13 (7-17) mg/dL Creatinine 0.64 (0.52-1.04) mg/dL Estimated GFR > 60.0 ML/MIN Glucose 96 (74-106) mg/dL Calcium 9.7 (8.4-10.2) mg/dL Total Bilirubin 0.70 (0.2-1.3) mg/dL AST 23 (14-36) U/L ALT 14 (0-35) U/L Alkaline Phosphatase 81 (38-126) U/L Troponin I < 0.012 (0.000-0.034) ng/mL Serum Total Protein 8.2 (6.3-8.2) g/dL Albumin 4.5 (3.5-5.0) g/dL 07/19/20 Range/Units 02:28 WBC 7.6 (4.0-10.5) K/mm3 RBC 4.49 (4.1-5.4) M/mm3 Hgb 13.3 (12.0-16.0) gm/dl Hct 40.0 (35-47) % MCV 89.1 (78-100) fl MCH 29.6 (26-32) pg MCHC 33.3 (32-36) g/dl RDW 12.8 (11.5-14.0) % Plt Count 257 (150-450) K/mm3 MPV 11.5 H (7.5-11.0) fl Gran % 56.9 (36.0-66.0) % Eos # (Auto) 0.09 (0-0.5) Absolute Lymphs (auto) 2.49 (1.0-4.6) Absolute Monos (auto) 0.67 (0.0-1.3) Lymphocytes % 32.9 (24.0-44.0) % Monocytes % 8.9 (0.0-12.0) % Eosinophils % 1.2 (0.00-5.0) % Basophils % 0.1 (0.0-0.4) % Absolute Granulocytes 4.31 (1.4-6.9) Basophils # 0.01 (0-0.4) PT (9.95-12.35) SECONDS INR (0.8-3.0) D-Dimer (215-500) ng/mL Sodium (137-145) mmol/L Potassium (3.5-5.1) mmol/L Chloride (98-107) mmol/L Carbon Dioxide (22-30) mmol/L Anion Gap (5-15) MEQ/L BUN (7-17) mg/dL Creatinine (0.52-1.04) mg/dL Estimated GFR ML/MIN Glucose (74-106) mg/dL Calcium (8.4-10.2) mg/dL Total Bilirubin (0.2-1.3) mg/dL AST (14-36) U/L ALT (0-35) U/L Alkaline Phosphatase (38-126) U/L Troponin I (0.000-0.034) ng/mL Serum Total Protein (6.3-8.2) g/dL Albumin (3.5-5.0) g/dL - Progress Progress: improved Air Movement: good Progress Note: 07/19/20 03:41 Patient's chest pressure and tightness have resolved. Blood Culture(s) Obtained: No Antibiotics given: No Counseled pt/family regarding: lab results, diagnosis, need for follow-up - Departure Departure Disposition: Home Clinical Impression: Non-cardiac chest pain Condition: Stable Critical Care Time: No Referrals: JOAO HEBERT MD [Primary Care Provider] - Additional Instructions: Call your primary care physician today to make arrangements for a follow-up appointment. Return to the emergency department if your symptoms recur.
[2020-07-19 03:04] LABS: Absolute Neutrophil Ct (ANC) 4.31 (1.4-6.9); BASOPHIL % 0.1 % (0.0-0.4); Basophil (Absolute #) 0.01 (0-0.4); Eosinophil % 1.2 % (0.00-5.0); Eosinophil (Absolute #) 0.09 (0-0.5); Hemoglobin 13.3 gm/dl (12.0-16.0); Lymphocyte (Absolute #) 2.49 (1.0-4.6); Lymphocytes % 32.9 % (24.0-44.0); Mean Cell Volume 89.1 fl (78-100); Mean Corpuscular Hemoglobin 29.6 pg (26-32); Mean Corpuscular Hgb Concent. 33.3 g/dl (32-36); Mean Platelet Volume 11.5 fl (7.5-11.0); Monocyte (Absolute #) 0.67 (0.0-1.3); Monocytes % 8.9 % (0.0-12.0); Neutrophil % 56.9 % (36.0-66.0); Platelet Count 257 K/mm3 (150-450); Red Blood Count 4.49 M/mm3 (4.1-5.4); Red Cell Distribution Width 12.8 % (11.5-14.0); White Blood Count 7.6 K/mm3 (4.0-10.5)
[2020-07-19 03:12] LABS: INR 1.23 (0.8-3.0); PROTIME 13.9 SECONDS (9.95-12.35)
[2020-07-19 03:27] LABS: ALBUMIN 4.5 g/dL (3.5-5.0); ALKALINE PHOSPHATASE 81 U/L (38-126); ANION GAP 13.7 MEQ/L (5-15); BLOOD UREA NITROGEN 13 mg/dL (7-17); CHLORIDE 104 mmol/L (98-107); Calcium 9.7 mg/dL (8.4-10.2); Carbon Dioxide 24 mmol/L (22-30); Creatinine 1 0.64 mg/dL (0.52-1.04); EST GLOMERULAR FILTRATION RATE > 60.0 ML/MIN; Glucose 96 mg/dL (74-106); Potassium 3.7 mmol/L (3.5-5.1); SGOT/AST 23 U/L (14-36); SGPT/ALT 14 U/L (0-35); SODIUM 138 mmol/L (137-145); Total Protein 8.2 g/dL (6.3-8.2)
[2020-07-19 03:31] VITALS: BP 133/72; PULSE 68
== END 2020-07-19 03:53 | disposition home or self-care (01) ==
LOC: ED 02:06
DX: R07.89 Other chest pain (principal)
CPT/HCPCS: 36000; 36415; 80053; 84484; 85025; 85379; 85610; 93005; 93041; 94760; 99284; A9270-GY

== ENCOUNTER 2020-07-23 06:53 | Day surgery (SDC) | payer OTHER ==
[2020-07-23] MEDS ORDERED: Lactated Ringers 1,000 ML IV ONE (07:25)
[2020-07-23] MEDS ORDERED: Lactated Ringers 1,000 ML IV SCH (07:30)
[2020-07-23] MEDS ORDERED: VIBRAMYCIN 100 MG*** 100 MG in Sodium Chloride 100ML MINI-BAG PLUS 100 ML IV SCH (08:15)
[2020-07-23] MEDS ORDERED: SUBLIMAZE 100 MCG/2 ML ONE (09:14)
[2020-07-23] MEDS ORDERED: Versed 2 MG/2 ML Injection ONE (09:14)
[2020-07-23] MEDS ORDERED: DIPRIVAN 200 MG/20 ML IV ONE (09:14)
[2020-07-23] MEDS ORDERED: Xylocaine-Mpf 2% 5 Ml Vial ONE (09:26)
[2020-07-23] MEDS ORDERED: VIBRAMYCIN 100 MG*** 100 MG in Dextrose 5%/Water IV Soln. 100ML PLUS BAG 100 ML IV SCH (10:00)
[2020-07-23 11:08] VITALS: BP 122/65; PULSE 55; O2SAT 97
--- NOTE | 2020-07-24 11:38 | OP ---
SURGERY DATE/TIME: 07/23/2020 0922 PREOPERATIVE DIAGNOSIS: Abnormal uterine bleeding. POSTOPERATIVE DIAGNOSIS: Abnormal uterine bleeding. PROCEDURE: Hysteroscopy, D&C. SURGEON: Gordon Neal D.O. PROPAGATOR: Ottoniel Yañez surgical consultant. ANESTHESIA: General. ESTIMATED BLOOD LOSS: Minimal. COMPLICATIONS: None. INDICATIONS: The risks, benefits, indications and alternatives of the procedure were reviewed with the patient prior to the procedure. The patient understood the risk of infection, bleeding, bowel injury, bladder injury, ureteral injury, uterine perforation associated with the surgery however desires to have this surgery as a possible means to alleviate her current medical condition. DESCRIPTION OF PROCEDURE AND FINDINGS: At this point the patient is taken to the operating room, given general sedation, placed in dorsal lithotomy position. Prepped and draped in the usual sterile fashion. A weighted speculum is then placed in the patient's vagina and the anterior lip of the cervix was grasped with a single tooth tenaculum. Endocervical dilators were advanced through the endocervical canal as a means to dilate the cervix and the uterus was sounded to approximately 8 cm. From this point a 5 mm hysteroscope was then placed into the fundus of the uterus where visualization revealed no gross abnormalities. From this point the hysteroscope was then removed and the curette was then placed into the fundus of the uterus and curettage performed in all quadrants of the uterus retrieving a mild to moderate amount of endometrial tissue. From this point hemostasis was obtained. At this point all instruments were removed from the patient's vaginal region. The patient was then taken out of dorsal lithotomy position, was taken out of anesthesia and was then taken to the recovery room in stable condition. All instruments and laps were accounted for x2.
== END 2020-07-23 11:02 | disposition home or self-care (01) ==
LOC: SDC 06:53
PROVIDERS: ATTEND Obstetrics & Gynecology
DX: N93.9 Abnormal uterine and vaginal bleeding, unspecified (principal)
CPT/HCPCS: 84703; J2250; J2704; J3010

== ENCOUNTER 2021-02-15 09:43 | Emergency (ER) | payer OTHER ==
[2021-02-15 10:42] LABS: BASOPHIL % 0.1 % (0.0-0.4); Basophil (Absolute #) 0.01 (0-0.4); Eosinophil % 0.5 % (0.00-5.0); Eosinophil (Absolute #) 0.04 (0-0.5); Hematocrit 39.3 % (35-47); Hemoglobin 13.1 gm/dl (12.0-16.0); Lymphocyte (Absolute #) 1.29 (1.0-4.6); Lymphocytes % 16.3 % (24.0-44.0); Mean Cell Volume 88.3 fl (78-100); Mean Corpuscular Hemoglobin 29.4 pg (26-32); Mean Corpuscular Hgb Concent. 33.3 g/dl (32-36); Mean Platelet Volume 12.1 fl (7.5-11.0); Monocyte (Absolute #) 0.45 (0.0-1.3); Monocytes % 5.7 % (0.0-12.0); Neutrophil % 77.4 % (36.0-66.0); Platelet Count 202 K/mm3 (150-450); Red Blood Count 4.45 M/mm3 (4.1-5.4); White Blood Count 7.9 K/mm3 (4.0-10.5)
--- NOTE | 2021-02-15 10:43 | ERPHSYRPT ---
- History of Present Illness Time Seen by Provider: 02/15/21 10:40 Source: patient Exam Limitations: no limitations Patient Subjective Stated Complaint: pt here for dizziness today, that has been happening off and on for 2 weeks now. she states the room is spinning and she feels off balance. she is 16 and 2 days , has been seen at drs office last week and had tests ran Triage Nursing Assessment: pt alert, resp easy, skin w/d/pale. face mask in place. abd soft, no vaginal bleeding or cramping Physician History: pt here for dizziness today, that has been happening off and on for 2 weeks now. she states the room is spinning and she feels off balance. she is 16 weeks and 2 days , has been seen at drs office last week and had tests Including EKG, Holter monitor, complete blood count and comprehensive metabolic panel which did not revealed any probable cause Timing/Duration: week(s) Severity: mild Associated Symptoms: denies symptoms Allergies/Adverse Reactions: cefaclor [From [facility]] Allergy (Mild, Verified 02/15/21 10:05) Rash Home Medications: Ferrous Sulfate 1 ea DAILY 02/15/21 [History] Vits W-Ca,Fe,FA(<1Mg) [] 1 ea DAILY 02/15/21 [History] Hx Tetanus, Diphtheria Vaccination/Date Given: Yes Hx Influenza Vaccination/Date Given: Yes Hx Pneumococcal Vaccination/Date Given: No Immunizations Up to Date: Yes Travel Risk - International Travel Have you traveled outside of the country in past 3 weeks: No - Coronavirus Screening Are you exhibiting any of the following symptoms?: No Close contact with a COVID-19 positive Pt in past 14-21 Days: No - Vaccine Status Have you recieved a Covid-19 vaccination: Yes Manager Library: Moderna - Vaccination Dates Date of 2cond Vaccination (if applicable): october - Review of Systems Constitutional: No Fever, No Chills Eyes: No Symptoms Ears, Nose, & Throat: No Symptoms Respiratory: No Cough, No Dyspnea Cardiac: No Chest Pain, No Edema, No Syncope Abdominal/Gastrointestinal: No Abdominal Pain, No Nausea, No Vomiting, No Diarrhea Genitourinary Symptoms: No Dysuria Musculoskeletal: No Back Pain, No Neck Pain Skin: No Rash Neurological: Dizziness, No Focal Weakness, No Sensory Changes Psychological: No Symptoms Endocrine: No Symptoms All Other Systems: Reviewed and Negative - Past Medical History Pertinent Past Medical History: Yes Neurological History: No Pertinent History ENT History: No Pertinent History Cardiac History: No Pertinent History Respiratory History: No Pertinent History Endocrine Medical History: No Pertinent History Musculoskeletal History: Fractures GI Medical History: No Pertinent History History: No Pertinent History Psycho-Social History: No Pertinent History Female Reproductive Disorders: No Pertinent History Other Medical History: [place] Syndrome, Ovarian Cysts, Broken colar bone - Past Surgical History Past Surgical History: Yes Neuro Surgical History: No Pertinent History Cardiac: No Pertinent History Respiratory: No Pertinent History Gastrointestinal: No Pertinent History Genitourinary: No Pertinent History Musculoskeletal: No Pertinent History Female Surgical History: Dilation & Curettage, Section Other Surgical History: Mole removed from chest 2007. 07/27/2013, 06/26/15, 12/08/17 - Social History Smoking Status: Never smoker Exposure to second hand smoke: No Drug Use: none Patient Lives Alone: No - Female History Hx Last Menstrual Period: 20 weeks ago Hx Now: Yes Expected Date of Delivery: 07/31/21 - Nursing Vital Signs Nursing Vital Signs: Initial Vital Signs Temperature 97.2 F 02/15/21 09:55 Pulse Rate 78 02/15/21 09:55 Respiratory Rate 14 02/15/21 09:55 Blood Pressure 133/73 02/15/21 09:55 O2 Sat by Pulse Oximetry 99 02/15/21 09:55 Pain Scale Pain Intensity 0 - Physical Exam General Appearance: no apparent distress, alert Eye Exam: PERRL/EOMI, eyes nml inspection Ears, Nose, Throat Exam: normal ENT inspection, TMs normal, pharynx normal, moist mucous membranes Neck Exam: normal inspection, non-tender, supple, full range of motion Respiratory Exam: normal breath sounds, lungs clear, No respiratory distress Cardiovascular Exam: regular rate/rhythm, normal heart sounds, normal peripheral pulses Gastrointestinal/Abdomen Exam: soft, normal bowel sounds, No tenderness, No mass Back Exam: normal inspection, normal range of motion, No CVA tenderness, No vertebral tenderness Extremity Exam: normal inspection, normal range of motion, pelvis stable Neurologic Exam: alert, oriented x 3, cooperative, normal mood/affect, nml cerebellar function, nml station & gait, sensation nml, No motor deficits Skin Exam: normal color, warm, dry, No rash Lymphatic Exam: No adenopathy SpO2: 99 - Course Nursing assessment & vital signs reviewed: Yes - Radiology Ultrasound Exam OB Ultrasound: Other (baby heart rate 144, no progressing ) Ordered Tests: Active Orders 24 hr Category Date Time Status OB FOLLOW UP PER FETUS [US] Stat Exams 02/15/21 Ordered CBC W DIFF Stat Lab 02/15/21 10:37 Completed CMP Stat Lab 02/15/21 10:37 Completed HCG QUALITATIVE,SERUM Stat Lab 02/15/21 09:30 Completed MAGNESIUM Stat Lab 02/15/21 10:37 Completed Lab/Rad Data: Laboratory Result Diagrams 02/15/21 10:37 02/15/21 10:37 Laboratory Results 02/15/21 02/15/21 02/15/21 Range/Units 10:37 10:37 09:30 WBC 7.9 (4.0-10.5) K/mm3 RBC 4.45 (4.1-5.4) M/mm3 Hgb 13.1 (12.0-16.0) gm/dl Hct 39.3 (35-47) % MCV 88.3 (78-100) fl MCH 29.4 (26-32) pg MCHC 33.3 (32-36) g/dl RDW 13.0 (11.5-14.0) % Plt Count 202 (150-450) K/mm3 MPV 12.1 H (7.5-11.0) fl Gran % 77.4 H (36.0-66.0) % Eos # (Auto) 0.04 (0-0.5) Absolute Lymphs (auto) 1.29 (1.0-4.6) Absolute Monos (auto) 0.45 (0.0-1.3) Lymphocytes % 16.3 L (24.0-44.0) % Monocytes % 5.7 (0.0-12.0) % Eosinophils % 0.5 (0.00-5.0) % Basophils % 0.1 (0.0-0.4) % Absolute Granulocytes 6.10 (1.4-6.9) Basophils # 0.01 (0-0.4) Sodium 138 (137-145) mmol/L Potassium 3.6 (3.5-5.1) mmol/L Chloride 105 (98-107) mmol/L Carbon Dioxide 21 L (22-30) mmol/L Anion Gap 15.1 H (5-15) MEQ/L BUN 7 (7-17) mg/dL Creatinine 0.51 L (0.52-1.04) mg/dL Estimated GFR > 60.0 ML/MIN Glucose 101 (74-106) mg/dL Calcium 9.5 (8.4-10.2) mg/dL Magnesium 2.1 (1.6-2.3) mg/dL Total Bilirubin 0.70 (0.2-1.3) mg/dL AST 22 (14-36) U/L ALT 17 (0-35) U/L Alkaline Phosphatase 55 (38-126) U/L Serum Total Protein 7.6 (6.3-8.2) g/dL Albumin 4.1 (3.5-5.0) g/dL Serum , Qual POSITIVE (Negative) - Progress Progress: improved Counseled pt/family regarding: lab results, diagnosis, need for follow-up, rad results - Departure Departure Disposition: Home Clinical Impression: Dizziness, with 16 completed weeks gestation Condition: Stable Critical Care Time: Yes Critical Care Time(excluding separately billable procedures): Critical 30-74 mins Referrals: JOAO HEBERT MD [Primary Care Provider] - Follow Up with PCP/3 days Instructions: Dizziness, Nonvertigo, (DC) Additional Instructions: Discharge/Care Plan TITI MASON was seen on 02/15/21 in the Emergency Room. The patient was counseled regarding Diagnosis,Lab results, Imaging studies, need for follow up and when to return to the Emergency Room. Prescriptions given: Discharge Note I have spoken with the patient and/or caregivers. I have explained the patient's condition, diagnosis and treatment plan based on the information available to me at this time. I have answered the patient's and/or caregiver's questions and ad dressed any concerns. The patient and/or caregivers have as good understanding of the patient's diagnosis, condition and treatment plan as can be expected at this point. The vital signs have been stable. The patient's condition is stable and appropriate for discharge from the emergency department. The patient will pursue further outpatient evaluation with the primary care physician or other designated or consulting physician as outlined in the discharge instructions. The patient and/or caregivers are agreeable to this plan of care and follow-up instructions have been explained in detail. The patient and/or caregivers have received these instruction. The patient/and or caregivers are aware that any significant change in condition or worsening of symptoms should prompt an immediate return to this or the closest emergency department or call 911. TITI MASON was seen on 02/15/21 n the Emergency Room. At that time you were treated for an emergent condition, during your visit Laboratory, Radiology and/or other procedures may have been ordered. It is very important that you follow-up with your Primary Care Physician JOAO HEBERT within the next 24- 48 hours to review your Emergency Room visit and the final results of testing that was ordered. Some test results such as Urine Cultures, Blood Cultures, and other cultures if ordered will not be finalized for 24-48 hours. If you do not have a Primary Care Provider please call the medical records department at [phone] ext [phone] to obtain a copy of your results or you may sign into our patient portal to obtain these results by visiting us @ [email or web address] and completing the following steps: 1. Click on the Patient Portal link 2. Click the Patient Self Enrollment Link to complete the enrollment form and entering your 3. Once the enrollment form is completed you will receive an email with a tempor bridgette ID and password at the email address you provided. 4. Next choose a user name and password. Your user name must be at least 4 characters long and your password must be at least 4 characters long. 5. Choose a security question from the list and provide your answer to the question. If you already have signed into the Health Portal you may access your Health Care Information 18/01 by the following steps: 1. Login to our website @ [email or web address] 2. Enter your original user name and password. FAQS The [facility] Health Portal is an online tool that contains your Lab Results, Radiology Reports, Visit History, Discharge Instructions and Health Summary Lab and Radiology Results will not be available for 72 hours on the portal. The Portal is a secure site, passwords are encryted and URLs are re-written so they cannot be copied and pasted. You and authorized family members are the only ones who can access your Portal. Also there is a timeout feature that protects your information if you leave the Portal page open. If you have technical difficulty please use the Contact Us link on the page this will allow you to submit any questions you have regarding the Portal or you may contact the Medical Record Department at [phone] ext [phone]. Prescriptions: Meclizine HCl 25 mg [Antivert 25 mg] 25 mg PO TID #15 tablet
[2021-02-15 10:48] LABS: ALBUMIN 4.1 g/dL (3.5-5.0); ALKALINE PHOSPHATASE 55 U/L (38-126); ANION GAP 15.1 MEQ/L (5-15); BLOOD UREA NITROGEN 7 mg/dL (7-17); CHLORIDE 105 mmol/L (98-107); Calcium 9.5 mg/dL (8.4-10.2); Carbon Dioxide 21 mmol/L (22-30); Creatinine 1 0.51 mg/dL (0.52-1.04); EST GLOMERULAR FILTRATION RATE > 60.0 ML/MIN; Glucose 101 mg/dL (74-106); MAGNESIUM 2.1 mg/dL (1.6-2.3); Potassium 3.6 mmol/L (3.5-5.1); SGOT/AST 22 U/L (14-36); SGPT/ALT 17 U/L (0-35); SODIUM 138 mmol/L (137-145); Total Protein 7.6 g/dL (6.3-8.2)
[2021-02-15 12:14] VITALS: BP 113/66; PULSE 66; O2SAT 97
--- NOTE | 2021-02-15 20:15 | XRAY ---
Indication: No heart rate. Two-dimensional OB ultrasound performed. Comparison: January 01, 2021. Again there is a single viable intrauterine with mean composite gestational age 16 weeks 4 days. heart rate 142 bpm. Anterior placenta without abnormal retroplacental fluid. Comment: Preliminary report was given.
== END 2021-02-15 12:15 | disposition home or self-care (01) ==
LOC: ED 09:43
DX: R42 Dizziness and giddiness (principal); Z3A.16 16 weeks gestation of pregnancy
CPT/HCPCS: 36415; 76816; 80053; 81025; 83735; 85025; 99284; 99291

== ENCOUNTER 2021-04-15 15:31 | Observation (INO) | payer OTHER ==
[2021-04-15 16:53] VITALS: BP 122/67; PULSE 72; O2SAT 98
[2021-04-15 17:02] LABS: Amphetamine,Urine NEGATIVE (NEGATIVE); Barbiturate,Urine NEGATIVE (NEGATIVE); Benzodiazepine,Urine NEGATIVE (NEGATIVE); Cocaine,Urine NEGATIVE (NEGATIVE); Methadone,Urine NEGATIVE (NEGATIVE); Opiate,Urine NEGATIVE (NEGATIVE); PCP,Urine NEGATIVE (NEGATIVE); THC,Urine NEGATIVE (NEGATIVE)
[2021-04-15 17:06] LABS: Appearance SLIGHTLY CLOUDY (CLEAR); Bacteria PACKED /HPF (NEGATIVE); Bilirubin NEGATIVE (NEGATIVE); Blood NEGATIVE Ery/ul (0-5); Epithelial Cells RARE /HPF (FEW); Glucose NEGATIVE (NEGATIVE); Ketones NEGATIVE (NEGATIVE); Leukocyte Esterase MODERATE (NEGATIVE); Mucus SLIGHT /HPF (NEGATIVE); Nitrite NEGATIVE (NEGATIVE); Protein,Urine Dip NEGATIVE (Negative); RBC 0-2 /HPF (0-2); Specific Gravity 1.008 (1.005-1.025); Urobilinogen NEGATIVE mg/dL (0-1)
== END 2021-04-15 18:00 | disposition home or self-care (01) ==
LOC: OB 15:31
PROVIDERS: ADMIT Family Medicine; ATTEND Family Medicine
DX: Z34.82 Encounter for supervision of other normal pregnancy, second trimester (principal); Z3A.24 24 weeks gestation of pregnancy
CPT/HCPCS: 80307; 81001; 87086; G0378

== ENCOUNTER 2021-04-24 23:04 | Observation (INO) | payer OTHER ==
[2021-04-24 23:50] VITALS: BP 109/71; PULSE 75
[2021-04-25 00:38] LABS: Appearance SLIGHTLY CLOUDY (CLEAR); Bacteria MODERATE /HPF (NEGATIVE); Bilirubin NEGATIVE (NEGATIVE); Blood NEGATIVE Ery/ul (0-5); Epithelial Cells RARE /HPF (FEW); Glucose NEGATIVE (NEGATIVE); Ketones NEGATIVE (NEGATIVE); Leukocyte Esterase NEGATIVE (NEGATIVE); Mucus SLIGHT /HPF (NEGATIVE); Nitrite NEGATIVE (NEGATIVE); Protein,Urine Dip NEGATIVE (Negative); Specific Gravity 1.013 (1.005-1.025); Urobilinogen NEGATIVE mg/dL (0-1)
== END 2021-04-25 01:05 | disposition home or self-care (01) ==
LOC: OB 23:04
PROVIDERS: ADMIT Family Medicine; ATTEND Family Medicine
DX: O26.892 Other specified pregnancy related conditions, second trimester (principal); Z3A.25 25 weeks gestation of pregnancy; R10.9 Unspecified abdominal pain
CPT/HCPCS: 81001; G0378

== ENCOUNTER 2021-06-12 10:43 | Observation (INO) | payer BC, OTHER ==
[2021-06-12 11:16] VITALS: PULSE 80
--- NOTE | 2021-06-12 11:58 | XRAY ---
Indication: Hypertension. Ultrasound biophysical profile study performed. Comparison: None Single intrauterine with heart rate 131 BPM. Four-quadrant JAY JAY is 16.9 cm, largest pocket 4.8 cm. 2 points given for breathing, movements, tone, and amniotic fluid volume. Impression: Total biophysical profile score is 8 out of 8.
[2021-06-12 12:08] LABS: Absolute Neutrophil Ct (ANC) 4.95 (1.4-6.9); BASOPHIL % 0.2 % (0.0-0.4); Basophil (Absolute #) 0.01 (0-0.4); Eosinophil % 0.5 % (0.00-5.0); Eosinophil (Absolute #) 0.03 (0-0.5); Hematocrit 34.3 % (35-47); Lymphocyte (Absolute #) 0.98 (1.0-4.6); Lymphocytes % 15.2 % (24.0-44.0); Mean Corpuscular Hemoglobin 29.2 pg (26-32); Mean Corpuscular Hgb Concent. 32.1 g/dl (32-36); Mean Platelet Volume 11.5 fl (7.5-11.0); Monocyte (Absolute #) 0.46 (0.0-1.3); Monocytes % 7.2 % (0.0-12.0); Neutrophil % 76.9 % (36.0-66.0); Platelet Count 204 K/mm3 (150-450); Red Blood Count 3.77 M/mm3 (4.1-5.4); Red Cell Distribution Width 12.9 % (11.5-14.0); White Blood Count 6.4 K/mm3 (4.0-10.5)
[2021-06-12 12:10] LABS: ALBUMIN 3.4 g/dL (3.5-5.0); ALKALINE PHOSPHATASE 78 U/L (38-126); ANION GAP 10.5 MEQ/L (5-15); BLOOD UREA NITROGEN 5 mg/dL (7-17); CHLORIDE 107 mmol/L (98-107); Calcium 8.5 mg/dL (8.4-10.2); Carbon Dioxide 21 mmol/L (22-30); Creatinine 1 0.49 mg/dL (0.52-1.04); EST GLOMERULAR FILTRATION RATE > 60.0 ML/MIN; Glucose 77 mg/dL (74-106); SGOT/AST 16 U/L (14-36); SGPT/ALT 10 U/L (0-35); SODIUM 134 mmol/L (137-145); Total Protein 6.4 g/dL (6.3-8.2); Uric Acid 4.5 mg/dL (2.6-6.0)
[2021-06-12 12:21] VITALS: BP 125/63
== END 2021-06-12 13:30 | disposition home or self-care (01) ==
LOC: OB 10:43
PROVIDERS: ADMIT Family Medicine; ATTEND Family Medicine
DX: Z34.83 Encounter for supervision of other normal pregnancy, third trimester (principal); Z3A.32 32 weeks gestation of pregnancy
CPT/HCPCS: 36415; 59025; 76818; 80053; 84550; 85025; G0378

== ENCOUNTER 2021-07-07 12:24 | Observation (INO) | payer BC, OTHER ==
[2021-07-07 13:26] LABS: Amphetamine,Urine NEGATIVE (NEGATIVE); Barbiturate,Urine NEGATIVE (NEGATIVE); Benzodiazepine,Urine NEGATIVE (NEGATIVE); Cocaine,Urine NEGATIVE (NEGATIVE); Methadone,Urine NEGATIVE (NEGATIVE); Opiate,Urine NEGATIVE (NEGATIVE); PCP,Urine NEGATIVE (NEGATIVE); THC,Urine NEGATIVE (NEGATIVE)
[2021-07-07 14:10] VITALS: BP 138/80; PULSE 81
== END 2021-07-07 13:20 | disposition home or self-care (01) ==
LOC: OB 12:24
PROVIDERS: ADMIT Family Medicine; ATTEND Family Medicine
DX: Z34.83 Encounter for supervision of other normal pregnancy, third trimester (principal); Z3A.36 36 weeks gestation of pregnancy
CPT/HCPCS: 80307; 84112; G0378

== ENCOUNTER 2021-07-16 05:00 | Inpatient (IN) | payer BC, OTHER ==
[2021-07-16] MEDS ORDERED: EXPAREL 266 MG/20 ML VIAL IJ ONE (05:01)
[2021-07-16] MEDS ORDERED: Pepcid 20 MG VIAL IV SCH (06:00)
[2021-07-16] MEDS ORDERED: CEFAZOLIN 2 GM-D5W BAG** 2 GM/50 ML ML IV SCH (06:00)
[2021-07-16] MEDS ORDERED: Reglan 10 MG/2 ML IV SCH (06:00)
[2021-07-16] MEDS ORDERED: SOD CITRATE-CITRIC ACID SOLN PO SCH (06:00)
[2021-07-16 06:10] LABS: Hematocrit 33.7 % (35-47); Hemoglobin 10.9 gm/dl (12.0-16.0); Mean Cell Volume 90.1 fl (78-100); Mean Corpuscular Hemoglobin 29.1 pg (26-32); Mean Corpuscular Hgb Concent. 32.3 g/dl (32-36); Mean Platelet Volume 11.8 fl (7.5-11.0); Platelet Count 196 K/mm3 (150-450); Red Blood Count 3.74 M/mm3 (4.1-5.4); Red Cell Distribution Width 13.3 % (11.5-14.0); White Blood Count 6.4 K/mm3 (4.0-10.5)
[2021-07-16 06:24] LABS: INR 0.94 (0.8-3.0); PROTIME 11.1 SECONDS (9.4-12.5)
[2021-07-16 06:27] LABS: PTT 25.9 SECONDS (25.1-36.5)
[2021-07-16] MEDS: Lactated Ringers 1,000 ML IV SCH ×2 (06:33→07:18)
[2021-07-16 06:51] LABS: Appearance SLIGHTLY CLOUDY (CLEAR); Bacteria MODERATE /HPF (NEGATIVE); Bilirubin NEGATIVE (NEGATIVE); Blood NEGATIVE Ery/ul (0-5); Epithelial Cells RARE /HPF (FEW); Glucose NEGATIVE (NEGATIVE); Ketones NEGATIVE (NEGATIVE); Leukocyte Esterase SMALL (NEGATIVE); Mucus SLIGHT /HPF (NEGATIVE); Nitrite NEGATIVE (NEGATIVE); Protein,Urine Dip NEGATIVE (Negative); RBC 0-2 /HPF (0-2); Specific Gravity 1.011 (1.005-1.025); Urobilinogen NEGATIVE mg/dL (0-1)
[2021-07-16] MEDS ORDERED: CLINDAMYCIN-D5W 900 MG/50 ML*** 900 MG/50 ML BAG IV SCH (07:00)
[2021-07-16] MEDS ORDERED: Lactated Ringers 1,000 ML IV SCH (07:00)
[2021-07-16 07:08] LABS: ABO TYPING AB; Antibody Screen NEGATIVE (NEGATIVE); RH TYPING POSITIVE
[2021-07-16] MEDS ORDERED: PHENYLEPHRINE HCL ONE (07:40)
[2021-07-16] MEDS ORDERED: TORAdol 30 mg Injection ONE (07:41)
[2021-07-16] MEDS ORDERED: Lactated Ringers 1,000 ML IV ONE ×2 (07:44→08:14)
[2021-07-16] MEDS ORDERED: BUPIVACAINE 0.5% VIAL IJ ONE (07:44)
[2021-07-16] MEDS ORDERED: Pitocin 10 UNITS/ML ONE (07:47)
[2021-07-16 07:51] LABS: Amphetamine,Urine NEGATIVE (NEGATIVE); Barbiturate,Urine NEGATIVE (NEGATIVE); Benzodiazepine,Urine NEGATIVE (NEGATIVE); Cocaine,Urine NEGATIVE (NEGATIVE); Methadone,Urine NEGATIVE (NEGATIVE); Opiate,Urine NEGATIVE (NEGATIVE); PCP,Urine NEGATIVE (NEGATIVE); THC,Urine NEGATIVE (NEGATIVE)
[2021-07-16] MEDS ORDERED: Astramorph-Pf 5 MG/10 ML ONE (07:53)
[2021-07-16] MEDS ORDERED: Sodium Chloride 0.9% 10 ML FLUSH Syringe IV PRN (08:00)
[2021-07-16] MEDS ORDERED: Narcan 0.4 MG/ML IV PRN (08:00)
[2021-07-16] MEDS ORDERED: MORPHINE SULFATE 2 MG INJ IV PRN (08:00)
[2021-07-16] MEDS ORDERED: PERCOCET TABLET 5/325MG PO PRN (08:00)
[2021-07-16] MEDS ORDERED: BENADRYL 50 MG/ML IV PRN (08:00)
[2021-07-16] MEDS ORDERED: DEMEROL 50 MG IV PRN (08:00)
[2021-07-16] MEDS ORDERED: CLARITIN 10 MG PO PRN (08:00)
[2021-07-16] MEDS ORDERED: Nubain 10 MG/ML IV PRN (08:00)
[2021-07-16] MEDS ORDERED: Zofran 4 MG/2 ML VIAL IV PRN (08:00)
[2021-07-16] MEDS ORDERED: TYLENOL EXTRA STRENGTH 500 MG PO PRN (08:00)
[2021-07-16] MEDS ORDERED: HOLD NARCOTIC ANALGESICS AND SEDATIVES X24 HR MC PRN (08:00)
[2021-07-16] MEDS ORDERED: Versed 2 MG/2 ML Injection ONE (08:20)
[2021-07-16] MEDS ORDERED: Anucort-HC SUPPOSITORY PR PRN (10:00)
[2021-07-16] MEDS ORDERED: Mylicon 80MG PO PRN (10:00)
[2021-07-16] MEDS ORDERED: CORTISONE 1% CREAM TP PRN (10:00)
[2021-07-16] MEDS ORDERED: LANSINOH 40 GM TOP PRN (10:00)
[2021-07-16 10:37] LABS: Slide Review YES
[2021-07-16 12:25] LABS: Appearance CLEAR (CLEAR); Bilirubin NEGATIVE (NEGATIVE); Blood NEGATIVE Ery/ul (0-5); Epithelial Cells RARE /HPF (FEW); Glucose NEGATIVE (NEGATIVE); Ketones NEGATIVE (NEGATIVE); Leukocyte Esterase NEGATIVE (NEGATIVE); Mucus SLIGHT /HPF (NEGATIVE); Nitrite NEGATIVE (NEGATIVE); Protein,Urine Dip NEGATIVE (Negative); Specific Gravity 1.015 (1.005-1.025); Urobilinogen NEGATIVE mg/dL (0-1)
[2021-07-16] MEDS ORDERED: TRANEXAMIC ACID 1000 MG/10 ML 1,000 MG in Sodium Chloride 0.9% 100 ML BAG 100 ML IV ONE (12:34)
[2021-07-16] MEDS ORDERED: XYLOCAINE 1% HCL 20 ML MDV ONE (12:41)
[2021-07-16 12:45] LABS: Basophil (Absolute #) 0 (0-0.4); Eosinophil % 0.1 % (0.00-5.0); Eosinophil (Absolute #) 0.02 (0-0.5); Hemoglobin 8.8 gm/dl (12.0-16.0); Lymphocytes % 5.8 % (24.0-44.0); Mean Cell Volume 90.3 fl (78-100); Mean Corpuscular Hemoglobin 29.4 pg (26-32); Mean Corpuscular Hgb Concent. 32.6 g/dl (32-36); Monocytes % 5.2 % (0.0-12.0); Neutrophil % 88.9 % (36.0-66.0); Platelet Count 250 K/mm3 (150-450); Red Blood Count 2.99 M/mm3 (4.1-5.4); Red Cell Distribution Width 13.3 % (11.5-14.0); White Blood Count 17.3 K/mm3 (4.0-10.5)
[2021-07-16] MEDS ORDERED: Sodium Chloride 0.9% 500 ML 500 ML IV ONE (12:46)
[2021-07-16] MEDS ORDERED: PITOCIN 30 UNITS/ LR 500 ML 500 ML IV ONE (12:46)
[2021-07-16] MEDS ORDERED: Sodium Chloride 0.9% 1000 ML 1,000 ML ONE (12:47)
[2021-07-16 12:54] LABS: ALKALINE PHOSPHATASE 78 U/L (38-126); ANION GAP 12.4 MEQ/L (5-15); BLOOD UREA NITROGEN 8 mg/dL (7-17); CHLORIDE 106 mmol/L (98-107); Calcium 8.5 mg/dL (8.4-10.2); Carbon Dioxide 21 mmol/L (22-30); Creatinine 1 0.65 mg/dL (0.52-1.04); EST GLOMERULAR FILTRATION RATE > 60.0 ML/MIN; Glucose 101 mg/dL (74-106); SGOT/AST 17 U/L (14-36); SGPT/ALT 12 U/L (0-35); SODIUM 135 mmol/L (137-145); Total Protein 5.8 g/dL (6.3-8.2)
[2021-07-16] MEDS ORDERED: Hemabate IM ONE ×2 (12:57→13:00)
[2021-07-16] MEDS ORDERED: PITOCIN 30 UNITS/ LR 500 ML 500 ML IV SCH (13:00)
[2021-07-16 13:31] LABS: CROSS MATCH (PRBC) COMPATIBLE (COMPATIBLE)
[2021-07-16] MEDS: MOTRIN 400 MG PO PRN (13:35)
--- NOTE | 2021-07-16 13:41 | XRAY ---
Indication: Intra-abdominal hemorrhage. Status post section. Multiple contiguous images obtained through the abdomen and pelvis without contrast. Comparison: None Lung bases demonstrates minimal dependent atelectasis. Peripheral right lower lobe demonstrates 7 mm and 14 mm noncalcified nodules probably granulomatous in this demographic. No infiltrate or effusion. Heart not enlarged. Enlarged heterogeneous uterus consistent with recent and abdominal wall postsurgical changes with pelvic air bubbles related to same day section. Both adnexa and right colic gutter demonstrates tiny free fluids. No walled off fluid collection. Urinary bladder is empty with Tam balloon catheter in situ. Remaining liver, gallbladder, pancreas, spleen, adrenal glands, kidneys, ureters, and aorta appear unremarkable for noncontrast exam. Osseous structures intact. Impression: 1. Postsurgical changes related to section including tiny pelvic air bubbles and tiny free fluid. 2. Enlarged heterogeneous uterus consistent with recent . 3. Incidental right lower lobe noncalcified nodules probably granulomatous. Comment: Study was reviewed with ordering clinician at the time of this dictation.
[2021-07-16] MEDS: Sodium Chloride 0.9% 1000 ML 1,000 ML IV SCH ×2 (13:56→14:51)
--- NOTE | 2021-07-16 13:57 | OP ---
SURGERY DATE/TIME: 07/16/2021 0753 PREOPERATIVE DIAGNOSES: 1) induced hypertension. 2) History of prior section. 3) Desires permanent sterilization. POSTOPERATIVE DIAGNOSES: 1) induced hypertension. 2) History of prior section. 3) Desires permanent sterilization. 4) Very thin lower uterine segment. PROCEDURES: 1) Repeat low transverse section. 2) Bilateral tubal ligation. SURGEON: Bird Escalante M.D. ESTIMATED BLOOD LOSS: 400 cc. URINE OUTPUT: 250 ml of clear straw-colored urine. ANESTHESIA: Spinal by Francisco Javier Cameron CRNA. SPECIMENS: 1) Bilateral fallopian tube segments. 2) Placenta was sent off pathology. DESCRIPTION OF PROCEDURE: After informed written consent was obtained, the patient was taken to the operating room and was prepped and draped in the usual sterile fashion after spinal anesthesia was performed. Marking pen was used to kathie the prior scar in the lower abdomen. Anesthesia was assessed to be adequate and then a low transverse skin incision was made by knife and carried down through the subcutaneous fat to the level of the fascia. The fascia was nicked on both sides of the midline and extended in horizontal using curved Gray scissors. The superior free edge of the fascia was then grasped with Gerber clamps and the underlying rectus muscles were dissected free. The same was repeated inferiorly. The peritoneal cavity was then opened and extended horizontal using blunt dissection. The lower uterine segment was noted to be extremely thin and had an opaque appearance. A horizontal uterine incision was made by knife and carried down to the level of the amniotic membranes which were carefully artificially ruptured. A viable male infant was delivered from the vertex presentation with a nuchal cord x2 which was reduced. The oropharynx and nares were bulb suctioned free and he had immediate strong cry and good tone. The cord was clamped and cut and then he was handed off to the awaiting nursery team. The placenta was then manually extracted from the uterus and the uterus exteriorized. Again, the lower uterine segment was noted to be exceedingly thin in the lower aspect of the incision. A #1 chromic was used to close the incision with a running locked fashion. A second layer was used to reinforce the suture line due to the same segment. Blood loss was reasonable and bleeding seemed to be well controlled. She had good firm uterus by the end of closure and vital signs are stable. Next, the left fallopian tube was grasped with a Echo and cautery used to make a window in the mesoappendix. The proximal and distal segments of the tube were then ligated with chromic suture and interceding tube segment was dissected free with Metzenbaum scissors. The lumen was then cauterized with electrocautery on both the proximal and distal tube segment. The same was repeated on the right side. Both fallopian tube segments were sent for pathology. The posterior cul-de-sac was wiped free of blood and clot with a moist lap sponge and the uterus was returned to the peritoneal cavity. There were two small areas of oozing in the suture line which were controlled with figure-of-8 sutures again to reinforce suture line and provide good hemostasis. The uterus appeared to be adequately closed and there were no complications. The lateral gutters were wiped free of blood and clot. Next, the fascia was closed with 0 Vicryl in a running fashion with good closure and good hemostasis were achieved at this level. Subcutaneous fat was irrigated with warm, sterile saline and any areas of bleeding were cauterized with electrocautery. Finally, the skin layer was closed with 4-0 undyed Vicryl in a running subcuticular fashion. Steri-Strips and occlusive dressing were placed over the incision. The patient was transferred to the recovery room in good condition.
[2021-07-16] MEDS ORDERED: TORAdol 30 mg Injection IV PRN (15:00)
[2021-07-16] MEDS ORDERED: XYLOCAINE 1% HCL 20 ML MDV IJ ONE (18:43)
[2021-07-16] MEDS: FERREX 150 PO SCH (20:45)
[2021-07-16] MEDS: Colace 100 MG PO SCH ×2 (23:00→23:09)
[2021-07-16] MEDS ORDERED: TORAdol 30 mg Injection IV SCH ×2 (23:37→23:45)
[2021-07-17] MEDS: TORAdol 30 mg Injection IV SCH ×2 (00:05→06:11)
[2021-07-17 01:23] LABS: Hematocrit 24.1 % (35-47); Hemoglobin 7.9 gm/dl (12.0-16.0)
[2021-07-17] MEDS: FERREX 150 PO SCH (09:20)
[2021-07-17] MEDS: Colace 100 MG PO SCH ×2 (09:20→23:11)
[2021-07-17] MEDS ORDERED: Dulcolax 10 MG SUPP PR PRN (10:00)
[2021-07-17] MEDS: MOTRIN 400 MG PO PRN ×3 (10:52→23:25)
[2021-07-17] MEDS: NORCO 5/325 MG PO PRN (19:44)
[2021-07-17] MEDS: Dextrose 5%-Lr IV Solution 1000 ML 1,000 ML IV SCH (20:28)
[2021-07-17] MEDS: Sodium Chloride 0.9% 1000 ML 1,000 ML IV SCH (20:29)
[2021-07-18] MEDS: NORCO 5/325 MG PO PRN ×3 (03:28→17:28)
[2021-07-18 04:19] VITALS: O2SAT 97
[2021-07-18 05:48] LABS: Absolute Neutrophil Ct (ANC) 5.15 (1.4-6.9); Basophil (Absolute #) 0.01 (0-0.4); Eosinophil % 0.9 % (0.00-5.0); Eosinophil (Absolute #) 0.06 (0-0.5); Hematocrit 21.6 % (35-47); Lymphocyte (Absolute #) 1.11 (1.0-4.6); Lymphocytes % 16.3 % (24.0-44.0); Mean Cell Volume 93.1 fl (78-100); Mean Corpuscular Hemoglobin 28.9 pg (26-32); Mean Platelet Volume 11.3 fl (7.5-11.0); Monocytes % 7.3 % (0.0-12.0); Neutrophil % 75.4 % (36.0-66.0); Platelet Count 164 K/mm3 (150-450); Red Blood Count 2.32 M/mm3 (4.1-5.4); Red Cell Distribution Width 14.2 % (11.5-14.0); White Blood Count 6.8 K/mm3 (4.0-10.5)
[2021-07-18 05:58] LABS: Hemoglobin 6.7 gm/dl (12.0-16.0)
[2021-07-18] MEDS: MOTRIN 400 MG PO PRN ×2 (06:07→13:43)
[2021-07-18 06:35] LABS: ALBUMIN 2.6 g/dL (3.5-5.0); ALKALINE PHOSPHATASE 63 U/L (38-126); ANION GAP 8.3 MEQ/L (5-15); BLOOD UREA NITROGEN 8 mg/dL (7-17); CHLORIDE 108 mmol/L (98-107); Calcium 8.1 mg/dL (8.4-10.2); Carbon Dioxide 26 mmol/L (22-30); Creatinine 1 0.62 mg/dL (0.52-1.04); EST GLOMERULAR FILTRATION RATE > 60.0 ML/MIN; Glucose 96 mg/dL (74-106); MAGNESIUM 2.1 mg/dL (1.6-2.3); Potassium 4.5 mmol/L (3.5-5.1); SGOT/AST 32 U/L (14-36); SGPT/ALT 15 U/L (0-35); SODIUM 138 mmol/L (137-145); Total Protein 5.2 g/dL (6.3-8.2)
--- NOTE | 2021-07-18 08:10 | PCM.DS ---
Discharge Summary Date of Admission: 07/16/21 05:00 Admitting Physician: JOAO HEBERT Consults: Consults on Case 07/16/21 07:00 Notify Physician OF ADMISSION 07/16/21 10:00 Notify Anesthesia Provider PRN 07/17/21 09:00 Navigation ONCE Primary Care Provider: JOAO HEBERT Allergies Allergies cefaclor [From Ceclor] Allergy (Mild, Verified 07/16/21 01:10) [facility] Summary - Hospital Course Hospital Course: patient had scheduled repeat c/section with tubal ligation on 07/16/21, this was her fourth section, had an extremely thin lower uterine segment and had a significant hemorrhage the day of delivery, CT abd/pel showed no complications, she responded well to TXA and hemabate. her hemoglobin settled at 6.7 today and she has some mild symptoms so giving 2 more units packed red blood cells today. she is and otherwise feels well, tolerating po and activity, vitals are good. - Vitals & Intake/Output Vital Signs: Vital Signs Temperature 98.3 F 07/18/21 04:00 Pulse Rate 89 07/18/21 04:00 Respiratory Rate 17 07/18/21 04:00 Blood Pressure 111/60 07/18/21 04:00 O2 Sat by Pulse Oximetry 97 07/18/21 04:00 Intake & Output: Intake & Output 07/15/21 07/16/21 07/17/21 07/18/21 11:59 11:59 11:59 11:59 Intake Total 4000 2340 Output Total 1400 Balance 2600 2340 Weight 117.934 kg - Lab Result Diagrams: 07/18/21 05:20 07/18/21 05:20 Lab Results-Last 24 Hrs: Lab Results-Last 24 Hours 07/18/21 07/18/21 Range/Units 05:20 05:20 WBC 6.8 (4.0-10.5) K/mm3 RBC 2.32 L (4.1-5.4) M/mm3 Hgb 6.7 L* (12.0-16.0) gm/dl Hct 21.6 L (35-47) % MCV 93.1 (78-100) fl MCH 28.9 (26-32) pg MCHC 31.0 L (32-36) g/dl RDW 14.2 H (11.5-14.0) % Plt Count 164 D (150-450) K/mm3 MPV 11.3 H (7.5-11.0) fl Gran % 75.4 H (36.0-66.0) % Eos # (Auto) 0.06 (0-0.5) Absolute Lymphs (auto) 1.11 (1.0-4.6) Absolute Monos (auto) 0.50 (0.0-1.3) Lymphocytes % 16.3 L (24.0-44.0) % Monocytes % 7.3 (0.0-12.0) % Eosinophils % 0.9 (0.00-5.0) % Basophils % 0.1 (0.0-0.4) % Absolute Granulocytes 5.15 (1.4-6.9) Basophils # 0.01 (0-0.4) Sodium 138 (137-145) mmol/L Potassium 4.5 (3.5-5.1) mmol/L Chloride 108 H (98-107) mmol/L Carbon Dioxide 26 (22-30) mmol/L Anion Gap 8.3 (5-15) MEQ/L BUN 8 (7-17) mg/dL Creatinine 0.62 (0.52-1.04) mg/dL Estimated GFR > 60.0 ML/MIN Glucose 96 (74-106) mg/dL Calcium 8.1 L (8.4-10.2) mg/dL Magnesium 2.1 (1.6-2.3) mg/dL Total Bilirubin 0.80 (0.2-1.3) mg/dL AST 32 (14-36) U/L ALT 15 (0-35) U/L Alkaline Phosphatase 63 (38-126) U/L Serum Total Protein 5.2 L (6.3-8.2) g/dL Albumin 2.6 L (3.5-5.0) g/dL Micro Results-Entire Visit: Microbiology 07/16/21 08:14 Urine Culture - Preliminary Catherized NO GROWTH TO DATE 07/16/21 05:21 Urine Culture - Final Clean Catch Midstream <10K NORMAL SKIN PADDY PROBABLE SKIN CONTAMINANT - Radiology Exams Ordered Rad Exams-Entire Visit: Radiology Procedures Category Date Time Status ABDOMEN AND PELVIS W/0 CONTRAS [CT] Stat Exams 07/16/21 12:44 Completed - Procedures and Test Procedures and Tests throughout Hospitalization: Therapy Orders & Screens 07/16/21 08:49 Standby ROUTINE Comment: Diagnosis: CLEO REPEAT WITH BILAT TUBAL, GHTN 07/16/21 12:35 EKG ONCE Comment: Diagnosis: CLEO REPEAT WITH BILAT TUBAL, GHTN Discharge Exam General Appearance: no apparent distress, alert Neurologic Exam: alert, oriented x 3 Respiratory Exam: normal breath sounds, lungs clear, No respiratory distress Cardiovascular Exam: regular rate/rhythm, normal heart sounds Gastrointestinal/Abdomen Exam: soft, other (incision c/d/i), No tenderness, No mass Extremity Exam: normal inspection, normal range of motion Final Diagnosis/Problem List - Final Discharge Diagnosis/Problem (1) delivery delivered Current Visit: No Status: Acute Code(s): O82 - ENCOUNTER FOR DELIVERY WITHOUT INDICATION (2) hemorrhage Current Visit: Yes Status: Acute Code(s): O72.1 - OTHER IMMEDIATE HEMORRHAGE (3) Anemia due to blood loss, acute Current Visit: Yes Status: Acute Code(s): D62 - ACUTE POSTHEMORRHAGIC ANEMIA - Discharge Disposition: Home, Self-Care Condition: Stable Prescriptions: New Hydrocodone/Acetaminophen [Hydrocodone-Acetamin 5-325 mg] 1 tab PO Q6HPRN PRN #28 tablet MDD 4 PRN Reason: Pain Continue Vits W-Ca,Fe,FA(<1Mg) [] 1 ea DAILY Ferrous Sulfate 1 ea DAILY Instructions: [facility], , Common Problems, Circumcision, (DC), Weight Gain and Nutrition Follow up with: JOAO HEBERT MD [Primary Care Provider] -
[2021-07-18] MEDS ORDERED: Sodium Chloride 0.9% 500 ML 500 ML IV SCH (08:30)
[2021-07-18] MEDS ORDERED: Lactated Ringers 500 ML IV SCH (08:30)
[2021-07-18 09:25] LABS: CROSS MATCH (PRBC) COMPATIBLE (COMPATIBLE)
[2021-07-18] MEDS: FERREX 150 PO SCH (11:12)
[2021-07-18] MEDS: Colace 100 MG PO SCH (11:13)
[2021-07-18 16:46] LABS: Absolute Neutrophil Ct (ANC) 6.44 (1.4-6.9); Basophil (Absolute #) 0.01 (0-0.4); Eosinophil % 0.6 % (0.00-5.0); Eosinophil (Absolute #) 0.05 (0-0.5); Hematocrit 29.1 % (35-47); Lymphocyte (Absolute #) 1.06 (1.0-4.6); Lymphocytes % 13.1 % (24.0-44.0); Mean Cell Volume 91.5 fl (78-100); Mean Corpuscular Hemoglobin 28.9 pg (26-32); Mean Corpuscular Hgb Concent. 31.6 g/dl (32-36); Mean Platelet Volume 10.8 fl (7.5-11.0); Monocyte (Absolute #) 0.53 (0.0-1.3); Monocytes % 6.6 % (0.0-12.0); Neutrophil % 79.6 % (36.0-66.0); Platelet Count 217 K/mm3 (150-450); Red Blood Count 3.18 M/mm3 (4.1-5.4); White Blood Count 8.1 K/mm3 (4.0-10.5)
[2021-07-18 16:53] LABS: Hemoglobin 9.2 gm/dl (12.0-16.0)
[2021-07-18 17:45] VITALS: BP 138/71; PULSE 86
== END 2021-07-18 17:45 | disposition home or self-care (01) | DRG 784 ==
LOC: OB 05:00 → OBSVTOIN 05:00
PROVIDERS: ADMIT Family Medicine; ATTEND Family Medicine
PROC: 10D00Z1 Extraction of Products of Conception, Low, Open Approach (ICD-10-PCS; principal; 2021-07-16)
PROC: 0U570ZZ Destruction of Bilateral Fallopian Tubes, Open Approach (ICD-10-PCS; 2021-07-16)
DX: O16.4 Unspecified maternal hypertension, complicating childbirth (principal); D62 Acute posthemorrhagic anemia; O72.1 Other immediate postpartum hemorrhage; O34.219 Maternal care for unspecified type scar from previous cesarean delivery; Z37.0 Single live birth; Z3A.37 37 weeks gestation of pregnancy; Z30.2 Encounter for sterilization
CPT/HCPCS: 36415; 36430; 62322; 64488; 74176; 76937; 76942; 80053; 80307; 81001; 82947; 82962; 83735; 85014; 85018; 85025; 85027; 85610; 85730; 86850; 86900; 86901; 86922; 87086; 88302; 88307; 93005; 94799; J1885; J2250; J2274; J2370; J2590; L0625; P9016; A9270-GY

== ENCOUNTER 2023-05-26 11:16 | Emergency (ER) | payer BC ==
--- NOTE | 2023-05-26 11:21 | ERPHSYRPT ---
- History of Present Illness Time Seen by Provider: 05/26/23 11:21 Source: patient Exam Limitations: no limitations Physician History: This is a 27-year-old white female patient of Dr. Hebert who is a diabetic and has been on Ozempic for quite some time. Her last dose was the Wednesday prior to this evaluation. Patient has a history of mitral valve prolapse as well. This morning, the patient woke up and noticed burning itchy sensation on her face which traveled to her neck chest and breast bilaterally as well as onto her bilateral arms. Patient took Benadryl at 9 AM which was 25 mg orally. Symptoms seem to subside. However, it returned and patient took a second 25 mg Benadryl at 1110 this morning prior to arrival. Patient has no known new exposures. She also complains of some abdominal cramping and constipation for 4 days. She does have this at times but usually after a few hours patient is able to have a bowel movement and her symptoms subside. She has had this symptom since this morning. Patient states that she has taken Dulcolax and Colace orally today to help with resolving her constipation. Patient denies any respiratory issues. She does not have a sore throat, her throat does not feel as though it is tightening, she has no stridor and she has not been wheezing. She denies a cough. Timing/Duration: today Severity: mild (To moderate) Associated Symptoms: rash Allergies/Adverse Reactions: cefaclor [From Ceclor] Allergy (Mild, Verified 05/26/23 11:29) Rash Home Medications: Semaglutide [Ozempic] 0.5 mg SQ WEEKLY 03/29/23 [History] Ondansetron [Ondansetron Odt ] 4 mg PO Q6H PRN 05/26/23 [History] Hx Tetanus, Diphtheria Vaccination/Date Given: Yes Hx Influenza Vaccination/Date Given: No Hx Pneumococcal Vaccination/Date Given: No Travel Risk - International Travel Have you traveled outside of the country in past 3 weeks: No - Coronavirus Screening Are you exhibiting any of the following symptoms?: No Close contact with a COVID-19 positive Pt in past 14-21 Days: No - Vaccine Status Have you recieved a Covid-19 vaccination: Yes [employer]: Moderna - Vaccination Dates Date of 2cond Vaccination (if applicable): 11/14/20 - Review of Systems Constitutional: No Symptoms Eyes: No Symptoms Ears, Nose, & Throat: No Symptoms Respiratory: No Symptoms Cardiac: No Symptoms Abdominal/Gastrointestinal: No Symptoms Genitourinary Symptoms: No Symptoms Musculoskeletal: No Symptoms Skin: Rash Neurological: No Symptoms Psychological: No Symptoms Endocrine: No Symptoms Hematologic/Lymphatic: No Symptoms Immunological/Allergic: No Symptoms All Other Systems: Reviewed and Negative - Past Medical History Pertinent Past Medical History: Yes Neurological History: No Pertinent History ENT History: No Pertinent History Cardiac History: Other Respiratory History: No Pertinent History Endocrine Medical History: No Pertinent History Musculoskeletal History: No Pertinent History GI Medical History: No Pertinent History History: No Pertinent History Psycho-Social History: No Pertinent History Female Reproductive Disorders: No Pertinent History Other Medical History: SOME SENSATION CHANGES ALONG THE SCAR ON THE FOOT. mitral valve prolapse - Past Surgical History Past Surgical History: Yes Neuro Surgical History: No Pertinent History Cardiac: No Pertinent History Respiratory: No Pertinent History Gastrointestinal: No Pertinent History Genitourinary: No Pertinent History Musculoskeletal: No Pertinent History Female Surgical History: Dilation & Curettage, Section, Tubal Ligation Other Surgical History: Mole removed from chest 2007. 07/27/2013, 06/26/15, 12/08/17, 07/16/2021 - Social History Smoking Status: Former smoker Exposure to second hand smoke: No Drug Use: none Patient Lives Alone: No - Nursing Vital Signs Nursing Vital Signs: Initial Vital Signs Temperature 99.0 F 05/26/23 11:19 Pulse Rate 70 05/26/23 11:19 Blood Pressure 117/86 05/26/23 11:19 O2 Sat by Pulse Oximetry 99 05/26/23 11:19 Pain Scale Pain Intensity 5 - Physical Exam General Appearance: no apparent distress, alert, anxiety Eye Exam: PERRL/EOMI, eyes nml inspection Ears, Nose, Throat Exam: normal ENT inspection, moist mucous membranes Neck Exam: normal inspection, non-tender, supple, full range of motion Respiratory Exam: normal breath sounds, lungs clear, airway intact, No chest tenderness, No respiratory distress Cardiovascular Exam: regular rate/rhythm, normal heart sounds, normal peripheral pulses Gastrointestinal/Abdomen Exam: soft, normal bowel sounds, No tenderness Pelvic Exam: not done Rectal Exam: not done Back Exam: normal inspection, normal range of motion, No CVA tenderness, No vertebral tenderness Extremity Exam: normal inspection, normal range of motion, pelvis stable Neurologic Exam: alert, oriented x 3, cooperative, button maker II-XII nml as tested, normal mood/affect, nml cerebellar function, nml station & gait, sensation nml Skin Exam: rash (Reddened coalesced patches of rash that are not blistering and do not appear to be significantly raised about her face neck anterior chest and upper portion of bilateral arms anteriorly) Lymphatic Exam: No adenopathy SpO2 Interpretation: normal O2 Delivery: Room Air - Course Nursing assessment & vital signs reviewed: Yes Ordered Tests: Active Orders 24 hr Category Date Time Status Enema STAT Care 05/26/23 12:26 Ordered Medication Summary Discontinued Medications Generic Name Dose Route Start Last Admin Trade Name Freq PRN Reason Stop Dose Admin Methylprednisolone Sodium 0 mg 05/26/23 11:52 05/26/23 12:02 Succinate 125 mg/ Sterile IM 05/26/23 11:53 125 mg Water 2 ml STAT ONE Administration Diphenhydramine HCl 25 mg 05/26/23 11:52 05/26/23 12:02 Diphenhydramine Hcl 50 Mg/Ml Vial IM 05/26/23 11:53 25 mg STAT ONE Administration Diphenhydramine HCl Confirm 05/26/23 11:57 Diphenhydramine Hcl 50 Mg/Ml Vial Administered 05/26/23 11:58 Dose 50 mg .ROUTE .STK-MED ONE Famotidine 40 mg 05/26/23 11:52 05/26/23 12:03 Famotidine 20 Mg Tablet PO 05/26/23 11:53 40 mg STAT ONE Administration Famotidine Confirm 05/26/23 11:57 Famotidine 20 Mg Tablet Administered 05/26/23 11:58 Dose 40 mg .ROUTE .STK-MED ONE Methylprednisolone Sodium Succinate Confirm 05/26/23 11:57 Methylprednis Sod Succ 125 Mg/2 Ml Vial Administered 05/26/23 11:58 Dose 125 mg .ROUTE .STK-MED ONE Sterile Water Confirm 05/26/23 11:57 Water For Injection,Sterile 10 Ml Vial Administered 05/26/23 11:58 Dose 10 ml IJ .STK-MED ONE - Progress Progress: improved, re-examined Progress Note: 05/26/23 11:59 This patient's medical issue is 1 of low to moderate complexity. The level of complexity in the workup performed is based on review the patient's past medical history, review of the patient's drug allergy list, history of present illness and physical findings on examination. The workup in this patient includes providing the patient with 25 mg more of intramuscular Benadryl, 125 mg of intramuscular Solu-Medrol and 40 mg of oral Pepcid. Patient will continue Benadryl 50 mg orally 3 times a day for the next 4 days and I will send a prescription of Pepcid and prednisone to her pharmacy remotely. With regard to her constipation symptoms, patient will drink plenty of fluids. She will continue using Dulcolax pills, Colace, MiraLAX orally. She may add milk of magnesia [id number]. I also instructed her to use glycerin suppositories and we will provide her with a take-home fleets enema. She is to follow-up with her primary care provider for bowel hygiene instructions. 05/26/23 12:04 Patient was concerned about the use of Benadryl, prednisone and Pepcid with her history of mitral valve prolapse. I did review the drug profiles of each of these medications. I did not find any information that there is a contraindication or caution to use these medications in the face of an individual who has mitral valve prolapse. I did discuss this with her prior to her receiving any of the medications. 05/26/23 12:27 Clinically, the rash is nearly completely resolved after intervention on reexamination. We will send the patient home with a fleets enema. Counseled pt/family regarding: diagnosis, need for follow-up Medical Desision Making - Diagnostic Testing Diagnostic test were ordered, analyzed, and reviewed by me: No - Risk of complications The pt has a mod risk of morbidity or mortality based on: Need for prescription drug management - Departure Departure Disposition: Home Clinical Impression: Allergic reaction, Constipation Condition: Stable Critical Care Time: No Referrals: JOAO HEBERT MD [Primary Care Provider] - Follow up/PCP as directed Additional Instructions: Drink plenty of fluids. Continue Benadryl 50 mg orally 3 times a day for the next 4 days. Take your prednisone and Pepcid prescription as prescribed. Return to the emergency department if symptoms worsen. With regard to your constipation, use the fleets enema rectally and follow the instructions on the package when you get home today. May also add milk of magnesia. Follow the i nstructions on the [id number] product. Increase activity. Call your primary care provider today, 05/26/2023, for further evaluation and management of your constipation and for instructions of bowel hygiene. Prescriptions: Prednisone 10 mg [Deltasone 10 mg] 10 mg PO TID #12 tablet Famotidine 20 mg [Pepcid 20 MG] 20 mg PO DAILY #5 tablet
[2023-05-26 11:29] VITALS: TEMP 99; O2SAT 100
[2023-05-26] MEDS ORDERED: BENADRYL 50 MG/ML IM ONE (11:52)
[2023-05-26] MEDS ORDERED: solu-MEDROL 125 MG, Sterile H2O 10 ml 2 ML IM ONE ×2 (11:52)
[2023-05-26] MEDS ORDERED: Pepcid 20 MG PO ONE (11:52)
[2023-05-26] MEDS ORDERED: Sterile H2O 10 ml IJ ONE (11:57)
[2023-05-26] MEDS ORDERED: Pepcid 20 MG ONE (11:57)
[2023-05-26] MEDS ORDERED: BENADRYL 50 MG/ML ONE (11:57)
[2023-05-26] MEDS ORDERED: solu-MEDROL ONE (11:57)
[2023-05-26 12:32] VITALS: BP 125/84; PULSE 61
== END 2023-05-26 12:37 | disposition home or self-care (01) ==
LOC: ED 11:16
DX: T78.40XA Allergy, unspecified, initial encounter (principal); L29.9 Pruritus, unspecified; K59.00 Constipation, unspecified; R10.9 Unspecified abdominal pain; E11.9 Type 2 diabetes mellitus without complications; Z79.85 Long-term (current) use of injectable non-insulin antidiabetic drugs; Z79.52 Long term (current) use of systemic steroids; Z79.899 Other long term (current) drug therapy
CPT/HCPCS: 96372; 99283; J1200; J2930; A9270-GY

== ENCOUNTER 2024-09-28 20:27 | Emergency (ER) | payer BC, OTHER ==
[2024-09-28 20:33] VITALS: TEMP 96; O2SAT 100
[2024-09-28 21:28] LABS: BASOPHIL % 0.2 % (0.1-1.2); Basophil (Absolute #) 0.02 x10^3/uL (0.01-0.08); Eosinophil % 1.3 % (0.7-5.8); Eosinophil (Absolute #) 0.11 x10^3/uL (0.04-0.36); Hematocrit 37.1 % (34.1-44.9); Hemoglobin 12.5 g/dL (11.2-15.7); IMMATURE GRAN # 0.01 x10^3u/L (0.001-0.031); IMMATURE GRAN % 0.1 % (0.001-0.429); Lymphocyte (Absolute #) 3.09 x10^3/uL (1.18-3.74); Lymphocytes % 36.8 % (19.3-51.7); Mean Cell Volume 86.7 fL (79.4-94.8); Mean Corpuscular Hemoglobin 29.2 pg (25.6-32.2); Mean Corpuscular Hgb Concent. 33.7 g/dL (32.2-35.5); Mean Platelet Volume 11.3 fL (9.4-12.3); Monocyte (Absolute #) 0.67 x10^3/uL (0.24-0.86); Neutrophil % 53.6 % (34.0-71.1); Platelet Count 256 x10^3/uL (182-369); Red Blood Count 4.28 x10^6/uL (3.93-5.22); Red Cell Distribution Width 12.1 % (11.7-14.4); White Blood Count 8.4 x10^3/uL (3.98-10.04)
[2024-09-28 21:33] LABS: ANION GAP 17.7 MEQ/L (5-15); Calcium 9.2 mg/dL (8.4-10.2); Creatinine 1 0.67 mg/dL (0.52-1.04); EST GLOMERULAR FILTRATION RATE 120.5 ML/MIN; MAGNESIUM 2.2 mg/dL (1.6-2.3); Potassium 3.5 mmol/L (3.5-5.1)
[2024-09-28 22:03] VITALS: BP 126/79; PULSE 78; RESP 17
--- NOTE | 2024-09-28 22:35 | ERPHSYRPT ---
- History of Present Illness Historian: patient Patient Subjective Stated Complaint: "I got dizzy and all of a sudden this tight pressure in the center of the chest". Triage Nursing Assessment: Pt presents to ER with complains of mid sternal chest pressure, really denies any pain. States was sitting on couch watching TV and playing on her phone when she got this crushing pressure in the center of her chest. Pt is alert and oriented x 3. Appears slightly anxious and is shaking. Pt has hx of Mitral valve prolapse and is on 12.[address] Magallon. Pt skin is pink, warm, and dry. Respirations are easy. Lungs clear. Heart sounds are strong. Bowel sounds are active. States has slight dizziness. Denies nausea/vomiting/diarrhea. Physician History: Patient has a mitral valve prolapse. She has occasional episodes that happen about 3 times a year when she gets a what seems to be a catecholamine rubi. She gets flushed and sweaty feels tingly. She says that her blood pressure seems like it radiates is and her heart rate goes up.She has had this happen before. Happened about 30 minutes prior to arrival. She was feeling much better by time she got here. The symptoms lasted about 5 minutes. 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 She gets echoes and so forth they do not seem too concerned about it right now. She does not have any other cardiac issues. She is on metoprolol 12-1/2 mg a day. She does have some underlying anxiety that is often associated with his mitral valve prolapse is. She is asymptomatic at this time. Aspirin Treatment Today: no aspirin today Allergies/Adverse Reactions: cefaclor [From [facility]] Allergy (Mild, Verified 09/28/24 20:34) Rash Home Medications: Metoprolol Tartrate 25 mg [Lopressor 25MG Tab] 0.5 tab PO DAILY 09/28/24 [History] Hx Tetanus, Diphtheria Vaccination/Date Given: Yes Hx Influenza Vaccination/Date Given: No Hx Pneumococcal Vaccination/Date Given: No Immunizations Up to Date: No Travel Risk - International Travel Have you traveled outside of the country in past 3 weeks: No - Emerging Infectious Disease Are you exhibiting symptoms associated with any current EIDs: No - Review of Systems Constitutional: No Symptoms Eyes: No Symptoms Respiratory: No Symptoms Abdominal/Gastrointestinal: No Symptoms Psychological: No Symptoms All Other Systems: Reviewed and Negative - Past Medical History Pertinent Past Medical History: Yes Neurological History: No Pertinent History ENT History: No Pertinent History Cardiac History: Other Respiratory History: No Pertinent History Endocrine Medical History: No Pertinent History Musculoskeletal History: No Pertinent History GI Medical History: No Pertinent History History: No Pertinent History Psycho-Social History: No Pertinent History Female Reproductive Disorders: No Pertinent History Other Medical History: SOME SENSATION CHANGES ALONG THE SCAR ON THE FOOT. mitral valve prolapse - Past Surgical History Past Surgical History: Yes Neuro Surgical History: No Pertinent History Cardiac: No Pertinent History Respiratory: No Pertinent History Gastrointestinal: No Pertinent History Genitourinary: No Pertinent History Musculoskeletal: No Pertinent History Female Surgical History: Dilation & Curettage, Section, Tubal Ligation Other Surgical History: Mole removed from chest 2007. 07/27/2013, , 12/08/17, 07/16/2021 - Female History Hx Last Menstrual Period: 09/19/2024 Hx Now: No - Social History Smoking Status: Never smoker Exposure to second hand smoke: No Drug Use: none - Social Determinants of Health Will the patient participate in the screening: Yes Do you worry about a steady place to live?: No Do you have any problems with any of the following?: No known problems In the past 12 months,have you had to go without utilities?: No Transportation Issues: No Has anyone in your support network made you feel unsafe?: No Have you or anyone in your house had to go w/o enough food: No - Nursing Vital Signs Nursing Vital Signs: Initial Vital Signs Temperature 96 F 09/28/24 20:28 Pulse Rate 82 09/28/24 20:28 Respiratory Rate 18 09/28/24 20:28 O2 Sat by Pulse Oximetry 100 09/28/24 20:28 Pain Scale Pain Intensity 0 - Physical Exam General Appearance: no apparent distress Eye Exam: PERRL/EOMI Respiratory Exam: normal breath sounds, lungs clear, No chest tenderness Cardiovascular Exam: regular rate/rhythm, normal heart sounds Gastrointestinal/Abdomen Exam: soft, normal bowel sounds Extremity Exam: normal inspection, normal range of motion Neurologic Exam: alert, oriented x 3, cooperative Skin Exam: normal color, warm, dry SpO2: 100 - Course Nursing assessment & vital signs reviewed: Yes EKG Interpreted by Me: RATE, NORMAL AXIS, NORMAL INTERVALS, NORMAL QRS Rhythm Strip: Rate Ordered Tests: Active Orders 24 hr Category Date Time Status EKG-ER Only STAT Care 09/28/24 21:14 Active CHEST 1 VIEW (PORTABLE) Stat Exams 09/28/24 21:43 Taken BMP Stat Lab 09/28/24 21:00 Completed CBC W DIFF Stat Lab 09/28/24 21:00 Completed MAGNESIUM Stat Lab 09/28/24 21:00 Completed TROPONIN Q4H Lab 09/28/24 21:00 Completed TROPONIN Q4H Lab 09/29/24 01:30 Ordered TROPONIN Q4H Lab 09/29/24 05:30 Ordered Lab/Rad Data: Laboratory Result Diagrams 09/28/24 21:00 09/28/24 21:00 Laboratory Results 09/28/24 09/28/24 09/28/24 Range/Units 21:00 21:00 21:00 WBC 8.4 (3.98-10.04) x10^3/uL RBC 4.28 (3.93-5.22) x10^6/uL Hgb 12.5 (11.2-15.7) g/dL Hct 37.1 (34.1-44.9) % MCV 86.7 (79.4-94.8) fL MCH 29.2 (25.6-32.2) pg MCHC 33.7 (32.2-35.5) g/dL RDW 12.1 (11.7-14.4) % Plt Count 256 (182-369) x10^3/uL MPV 11.3 (9.4-12.3) fL Gran % 53.6 (34.0-71.1) % Immature Gran % (Auto) 0.1 (0.001-0.429) % Nucleat RBC Rel Count 0.0 (0.00-0.2) % Eos # (Auto) 0.11 (0.04-0.36) x10^3/uL Immature Gran # (Auto) 0.01 (0.001-0.031) x10^3u/L Absolute Lymphs (auto) 3.09 (1.18-3.74) x10^3/uL Absolute Monos (auto) 0.67 (0.24-0.86) x10^3/uL Absolute Nucleated RBC 0.00 (0.00-0.012) x10^3u/L Lymphocytes % 36.8 (19.3-51.7) % Monocytes % 8.0 (4.7-12.5) % Eosinophils % 1.3 (0.7-5.8) % Basophils % 0.2 (0.1-1.2) % Absolute Granulocytes 4.50 (1.56-6.13) x10^3/uL Basophils # 0.02 (0.01-0.08) x10^3/uL Sodium 142 (135-145) mmol/L Potassium 3.5 (3.5-5.1) mmol/L Chloride 102 (98-107) mmol/L Carbon Dioxide 26 (22-30) mmol/L Anion Gap 17.7 H (5-15) MEQ/L BUN 15 (7-17) mg/dL Creatinine 0.67 (0.52-1.04) mg/dL Estimated GFR 120.5 ML/MIN Glucose 113 H (74-106) mg/dL Calcium 9.2 (8.4-10.2) mg/dL Magnesium 2.2 (1.6-2.3) mg/dL Troponin I < 0.012 (0.000-0.033) ng/mL - Progress Progress: improved Air Movement: good Progress Note: Patient was stable throughout stay. I think that she is having a issue when something with her mitral valve prolapse occurs and causes a catecholamine release. She also has some underlying anxiety which gets triggered by this and she starts really thinking about things. Her initial EKG was unremarkable. Repeat 1 before she left was unremarkable. They are both interpreted by me. Normal sinus rhythm no significant ST or T changes. No axis deviation. Chest x-ray was done it showed no acute findings. Her troponins were not elevated. Her lab work looks good no electrolyte abnormalities or magnesium issues.At this time I think the patient stable to go home. 09/28/24 22:32 Blood Culture(s) Obtained: No Medical Desision Making - Independent Historian Additional History obtained from: Spouse - Risk of complications Minimal Risk: Minimal risk of morbidity - Departure Departure Disposition: Home Clinical Impression: Palpitations Condition: Stable Critical Care Time: No Referrals: JOAO HEBERT MD [Primary Care Provider] - Follow up/PCP as directed Instructions: Chest Pain (DC)
--- NOTE | 2024-09-29 08:46 | XRAY ---
Indication: Chest pain. Comparison: None Portable chest inflated and clear. Heart and mediastinal structures within normal limits. Bony thorax intact. No acute findings.
== END 2024-09-28 22:43 | disposition home or self-care (01) ==
LOC: ED 20:27
DX: R00.2 Palpitations (principal); I34.1 Nonrheumatic mitral (valve) prolapse; Z79.899 Other long term (current) drug therapy
CPT/HCPCS: 36415; 71045; 80048; 83735; 84484; 85025; 93005; 99283; 99285